=== PATIENT | female | born 1940 | race Caucasian/White ===

== ENCOUNTER 2023-01-22 16:48 | Inpatient (IN) | payer OTHER ==
[~2023-01-22] VITALS: Ht 167.6 cm; Wt 87.5 kg
[2023-01-22 16:58] VITALS: BP_SYST 112
[2023-01-22 17:21] LABS: BASOPHILS % (AUTO) 0.2 % (0.0-2.0); EOSINOPHILS # (AUTO) 0.1 K/uL (0.0-0.4); HEMATOCRIT 40.9 % (36-48); HEMOGLOBIN 13.3 g/dL (12.0-16.0); LYMPHOCYTES # (AUTO) 1.6 K/uL (1.0-5.5); LYMPHOCYTES % (AUTO) 21.1 % (20.5-51.5); MEAN CORPUSCULAR HEMOGLOBIN 29 pg (27-31); MEAN CORPUSCULAR HGB CONC 33 % (32-36); MEAN CORPUSCULAR VOLUME 90 fL (79.0-98.0); MONOCYTES # (AUTO) 0.8 K/uL (0.0-1.0); MONOCYTES % (AUTO) 10.9 % (1.7-9.3); NEUTROPHILS % (AUTO) 66.8 % (40.0-70.0); PLATELET COUNT (AUTO) 216 K/uL (130-430); RED BLOOD CELL COUNT(AUTO) 4.53 MIL/uL (4.2-6.2); RED CELL DISTRIBUTION WIDTH 16.6 % (9.0-15.0); WHITE BLOOD COUNT (AUTO) 7.5 K/uL (4.8-10.8)
[2023-01-22 17:42] LABS: INR 1.2 (0.8-1.2); PROTHROMBIN TIME 12.3 SECS (9.5-12.5)
[2023-01-22 18:00] LABS: ANION GAP 7 (5-15); CALCIUM 9.1 mg/dL (8.4-11.0); CHLORIDE 106 mmol/L (98-107); CREATININE 0.73 mg/dL (0.55-1.30); GLUCOSE 105 mg/dL (70-99); UREA NITROGEN, BLOOD 6 mg/dL (8-21)
[2023-01-22 18:14] LABS: ALANINE AMINOTRANSFERASE 12 U/L (12-78); ASPARTATE AMINOTRANSFERASE 18 U/L (10-37); TOTAL BILIRUBIN 0.7 mg/dL (0.0-1.0)
[2023-01-22 18:15] LABS: ALBUMIN 2.1 g/dL (3.4-4.8)
[2023-01-22] MEDS ORDERED: PANTOPRAZOLE SODIUM 40 MG/VIAL (PROTONIX) IVP SCH (21:00)
[2023-01-22] MEDS ORDERED: POTASSIUM CHLORIDE 40 MEQ in 0.45% NS 250 ML IV ONE (22:00)
[2023-01-22] MEDS ORDERED: LevALBUTEROL HCL 1.25 MG/0.5 ML *CONC.* VIAL.NEB (XOPENEX CONC.) INH PRN (22:00)
[2023-01-22] MEDS ORDERED: ACETAMINOPHEN 325 MG TABLET PO PRN (22:15)
[2023-01-22 22:42] VITALS: BP_SYST 155
[2023-01-22] MEDS: LevALBUTEROL HCL 1.25 MG/0.5 ML *CONC.* VIAL.NEB (XOPENEX CONC.) INH SCH (23:01)
[2023-01-22 23:51] VITALS: BP_SYST 106
[2023-01-23] VITALS (8 sets, daily range): BP systolic 105–155
[2023-01-23] MEDS: KCL 20 mEq in 100 mL (PREMIX) 100 ML IV SCH ×2 (00:54→04:44)
[2023-01-23] MEDS: LevALBUTEROL HCL 1.25 MG/0.5 ML *CONC.* VIAL.NEB (XOPENEX CONC.) INH SCH ×3 (07:50→23:00)
[2023-01-23 16:11] LABS: BASOPHILS # (AUTO) 0.1 K/uL (0.0-0.2); BASOPHILS % (AUTO) 1.2 % (0.0-2.0); EOSINOPHILS # (AUTO) 0.1 K/uL (0.0-0.4); EOSINOPHILS % (AUTO) 1.5 % (0.0-4.0); HEMATOCRIT 38.1 % (36-48); HEMOGLOBIN 12.4 g/dL (12.0-16.0); LYMPHOCYTES # (AUTO) 1.9 K/uL (1.0-5.5); LYMPHOCYTES % (AUTO) 27.6 % (20.5-51.5); MEAN CORPUSCULAR HEMOGLOBIN 29 pg (27-31); MEAN CORPUSCULAR HGB CONC 33 % (32-36); MEAN CORPUSCULAR VOLUME 90 fL (79.0-98.0); MONOCYTES # (AUTO) 0.8 K/uL (0.0-1.0); MONOCYTES % (AUTO) 11.2 % (1.7-9.3); NEUTROPHILS # (AUTO) 4.1 K/uL (1.8-7.7); NEUTROPHILS % (AUTO) 58.5 % (40.0-70.0); PLATELET COUNT (AUTO) 211 K/uL (130-430); RED BLOOD CELL COUNT(AUTO) 4.24 MIL/uL (4.2-6.2); RED CELL DISTRIBUTION WIDTH 16.8 % (9.0-15.0)
[2023-01-23 16:26] LABS: ANION GAP 5 (5-15); CALCIUM 8.9 mg/dL (8.4-11.0); CHLORIDE 105 mmol/L (98-107); CREATININE 0.71 mg/dL (0.55-1.30); GLUCOSE 103 mg/dL (70-99); UREA NITROGEN, BLOOD 8 mg/dL (8-21)
[2023-01-23] MEDS ORDERED: POTASSIUM CHLORIDE 20 MEQ TAB.PRT.SR PO ONE ×2 (16:45→20:45)
[2023-01-23] MEDS ORDERED: POTASSIUM CHLORIDE 40 MEQ in NS 250 ML IV ONE (17:00)
[2023-01-23] MEDS ORDERED: POTASSIUM CHLORIDE 40 MEQ, LIDOCAINE JECT 2% PF 100 MG 50 MG in NS 250 ML IV ONE (20:00)
[2023-01-23] MEDS: ENOXAPARIN SODIUM 40 MG/0.4 ML SYRINGE SUBCUT SCH (21:38)
[2023-01-23] MEDS ORDERED: POTASSIUM CHLORIDE 20 MEQ/PKT PACKET PO ONE (21:45)
[2023-01-24] VITALS: BP_SYST 100
[2023-01-24] MEDS: LevALBUTEROL HCL 1.25 MG/0.5 ML *CONC.* VIAL.NEB (XOPENEX CONC.) INH SCH ×2 (07:00→22:36)
[2023-01-24 08:00] VITALS: BP_SYST 127
[2023-01-24 10:27] LABS: ANION GAP 4 (5-15); CALCIUM 8.6 mg/dL (8.4-11.0); CHLORIDE 106 mmol/L (98-107); CREATININE 0.59 mg/dL (0.55-1.30); GLUCOSE 98 mg/dL (70-99); UREA NITROGEN, BLOOD 5 mg/dL (8-21)
[2023-01-24] MEDS ORDERED: POTASSIUM CHLORIDE 40 MEQ in NS 250 ML IV ONE (11:00)
[2023-01-24] MEDS ORDERED: POTASSIUM CHLORIDE 20 MEQ/PKT PACKET PO ONE ×3 (11:00→18:15)
[2023-01-24 11:53] VITALS: BP_SYST 155
[2023-01-24 17:36] VITALS: BP_SYST 145
[2023-01-24 20:00] VITALS: BP_SYST 116
[2023-01-24] MEDS: ENOXAPARIN SODIUM 40 MG/0.4 ML SYRINGE SUBCUT SCH (20:48)
[2023-01-25] VITALS: BP_SYST 139
[2023-01-25] MEDS: LevALBUTEROL HCL 1.25 MG/0.5 ML *CONC.* VIAL.NEB (XOPENEX CONC.) INH SCH ×3 (07:10→23:18)
[2023-01-25 08:00] VITALS: BP_SYST 121
[2023-01-25 08:04] LABS: BASOPHILS # (AUTO) 0.1 K/uL (0.0-0.2); BASOPHILS % (AUTO) 2.1 % (0.0-2.0); EOSINOPHILS # (AUTO) 0.1 K/uL (0.0-0.4); EOSINOPHILS % (AUTO) 2.6 % (0.0-4.0); HEMATOCRIT 36.4 % (36-48); HEMOGLOBIN 11.9 g/dL (12.0-16.0); LYMPHOCYTES # (AUTO) 1.6 K/uL (1.0-5.5); LYMPHOCYTES % (AUTO) 29.9 % (20.5-51.5); MEAN CORPUSCULAR HEMOGLOBIN 30 pg (27-31); MEAN CORPUSCULAR HGB CONC 33 % (32-36); MEAN CORPUSCULAR VOLUME 90 fL (79.0-98.0); MONOCYTES # (AUTO) 0.6 K/uL (0.0-1.0); MONOCYTES % (AUTO) 11.3 % (1.7-9.3); NEUTROPHILS # (AUTO) 2.8 K/uL (1.8-7.7); NEUTROPHILS % (AUTO) 54.1 % (40.0-70.0); PLATELET COUNT (AUTO) 198 K/uL (130-430); RED BLOOD CELL COUNT(AUTO) 4.03 MIL/uL (4.2-6.2); RED CELL DISTRIBUTION WIDTH 17.1 % (9.0-15.0); WHITE BLOOD COUNT (AUTO) 5.3 K/uL (4.8-10.8)
[2023-01-25 08:06] LABS: ANION GAP 3 (5-15); CALCIUM 8.7 mg/dL (8.4-11.0); CHLORIDE 108 mmol/L (98-107); CREATININE 0.54 mg/dL (0.55-1.30); GLUCOSE 86 mg/dL (70-99); UREA NITROGEN, BLOOD 6 mg/dL (8-21)
[2023-01-25 12:00] VITALS: BP_SYST 122
[2023-01-25 16:00] VITALS: BP_SYST 126
[2023-01-25] MEDS: ENOXAPARIN SODIUM 40 MG/0.4 ML SYRINGE SUBCUT SCH (21:39)
[2023-01-25 22:59] VITALS: BP_SYST 130
[2023-01-25 23:00] VITALS: BP_SYST 130
[2023-01-26 01:56] VITALS: BP_SYST 141
[2023-01-26] MEDS: LevALBUTEROL HCL 1.25 MG/0.5 ML *CONC.* VIAL.NEB (XOPENEX CONC.) INH SCH ×3 (07:20→23:27)
[2023-01-26 08:37] VITALS: BP_SYST 100
[2023-01-26 10:31] VITALS: BP_SYST 100
[2023-01-26 12:00] VITALS: BP_SYST 144
[2023-01-26 16:00] VITALS: BP_SYST 140
[2023-01-26 20:00] VITALS: BP_SYST 143
[2023-01-26] MEDS: ENOXAPARIN SODIUM 40 MG/0.4 ML SYRINGE SUBCUT SCH (23:13)
[2023-01-27 02:30] VITALS: BP_SYST 123
[2023-01-27] MEDS: LevALBUTEROL HCL 1.25 MG/0.5 ML *CONC.* VIAL.NEB (XOPENEX CONC.) INH SCH ×3 (07:00→23:00)
[2023-01-27 07:39] VITALS: BP_SYST 136
[2023-01-27 11:30] VITALS: BP_SYST 130
[2023-01-27 15:05] VITALS: BP_SYST 130
[2023-01-27] MEDS: MEGESTROL ACETATE 400 MG/10 ML UDC PO SCH (21:10)
[2023-01-27] MEDS: ENOXAPARIN SODIUM 40 MG/0.4 ML SYRINGE SUBCUT SCH (21:10)
[2023-01-28 00:17] VITALS: BP_SYST 120
[2023-01-28 04:00] VITALS: BP_SYST 118
[2023-01-28 08:08] LABS: ALANINE AMINOTRANSFERASE 11 U/L (12-78); ALBUMIN 1.8 g/dL (3.4-4.8); ANION GAP 6 (5-15); ASPARTATE AMINOTRANSFERASE 15 U/L (10-37); CALCIUM 8.6 mg/dL (8.4-11.0); CHLORIDE 107 mmol/L (98-107); CREATININE 0.59 mg/dL (0.55-1.30); GLUCOSE 80 mg/dL (70-99); TOTAL BILIRUBIN 0.6 mg/dL (0.0-1.0); UREA NITROGEN, BLOOD 5 mg/dL (8-21)
[2023-01-28 08:28] VITALS: BP_SYST 124
[2023-01-28] MEDS: MEGESTROL ACETATE 400 MG/10 ML UDC PO SCH ×2 (08:45→08:46)
[2023-01-28 08:56] LABS: BASOPHILS # (AUTO) 0.1 K/uL (0.0-0.2); BASOPHILS % (AUTO) 1.9 % (0.0-2.0); EOSINOPHILS # (AUTO) 0.2 K/uL (0.0-0.4); EOSINOPHILS % (AUTO) 2.8 % (0.0-4.0); HEMATOCRIT 34.8 % (36-48); HEMOGLOBIN 11.5 g/dL (12.0-16.0); LYMPHOCYTES # (AUTO) 1.4 K/uL (1.0-5.5); LYMPHOCYTES % (AUTO) 23.7 % (20.5-51.5); MEAN CORPUSCULAR HEMOGLOBIN 30 pg (27-31); MEAN CORPUSCULAR HGB CONC 33 % (32-36); MEAN CORPUSCULAR VOLUME 89 fL (79.0-98.0); MONOCYTES # (AUTO) 0.6 K/uL (0.0-1.0); MONOCYTES % (AUTO) 10.3 % (1.7-9.3); NEUTROPHILS # (AUTO) 3.6 K/uL (1.8-7.7); NEUTROPHILS % (AUTO) 61.3 % (40.0-70.0); PLATELET COUNT (AUTO) 208 K/uL (130-430); RED BLOOD CELL COUNT(AUTO) 3.89 MIL/uL (4.2-6.2); WHITE BLOOD COUNT (AUTO) 5.8 K/uL (4.8-10.8)
[2023-01-28] MEDS ORDERED: POTASSIUM CHLORIDE 20 MEQ TAB.PRT.SR PO ONE (10:15)
[2023-01-28] MEDS ORDERED: POTASSIUM CHLORIDE 40 MEQ in D5W 250 ML IV ONE (10:15)
[2023-01-28 11:40] VITALS: BP_SYST 134
[2023-01-28] MEDS ORDERED: POTASSIUM CHLORIDE 40 MEQ, LIDOCAINE JECT 2% PF 100 MG 50 MG in NS 250 ML IV ONE ×2 (13:00→20:00)
[2023-01-28] MEDS: LevALBUTEROL HCL 1.25 MG/0.5 ML *CONC.* VIAL.NEB (XOPENEX CONC.) INH SCH ×2 (15:00→20:00)
[2023-01-28 16:15] VITALS: BP_SYST 144
[2023-01-28] MEDS: POTASSIUM CHLORIDE 20 MEQ/PKT PACKET PO SCH (21:00)
[2023-01-28] MEDS: ENOXAPARIN SODIUM 40 MG/0.4 ML SYRINGE SUBCUT SCH (21:00)
[2023-01-28 23:30] VITALS: BP_SYST 134
[2023-01-29 00:29] VITALS: BP_SYST 138
[2023-01-29 08:00] VITALS: BP_SYST 136
[2023-01-29] MEDS: POTASSIUM CHLORIDE 20 MEQ/PKT PACKET PO SCH (08:42)
[2023-01-29] MEDS ORDERED: POTASSIUM CHLORIDE 20 MEQ/PKT PACKET PO ONE (09:30)
[2023-01-29 12:00] VITALS: BP_SYST 137
[2023-01-29] MEDS: LevALBUTEROL HCL 1.25 MG/0.5 ML *CONC.* VIAL.NEB (XOPENEX CONC.) INH SCH (15:29)
[2023-01-29 15:35] VITALS: BP_SYST 137
[2023-01-29 16:00] VITALS: BP_SYST 131
[2023-01-29 16:21] VITALS: BP_SYST 139
== END 2023-01-29 17:30 | DRG 193 ==
LOC: SED 16:48 → SMU 21:11
PROVIDERS: ADMIT Family Medicine; ATTEND Family Medicine
DX: J18.9 Pneumonia, unspecified organism (principal); E43 Unspecified severe protein-calorie malnutrition; M81.0 Age-related osteoporosis without current pathological fracture; Z96.642 Presence of left artificial hip joint; Z20.822 Contact with and (suspected) exposure to COVID-19; E87.6 Hypokalemia; Z60.2 Problems related to living alone; Z68.31 Body mass index [BMI] 31.0-31.9, adult; Z88.0 Allergy status to penicillin
CPT/HCPCS: 36415; 71045; 80048; 80053; 82550; 83605; 83735; 83880; 84132; 84484; 85025; 85610-TC; 85730-TC; 93005; 94640; 94760; 97110-GP; 97112-GP; 97163-GP; 97530-GP; 99285; J1650; J1956; J3480; J7050; J7060; J7612

== ENCOUNTER 2023-02-21 02:38 | Inpatient (IN) | payer OTHER ==
[~2023-02-21] VITALS: Ht 167.6 cm; Wt 78.0 kg
[2023-02-21] MEDS: POTASSIUM CHLORIDE 40 MEQ in 0.45% NS 250 ML IV SCH ×2 (00:30→17:00)
[2023-02-21] MEDS ORDERED: ONDANSETRON HCL 4 MG/2 ML VIAL IVP ONE (02:45)
[2023-02-21 02:50] VITALS: BP_SYST 142
--- NOTE | 2023-02-21 02:59 | NUR ---
Patient triaged and placed in RM 4. VSS and patient appears in no acute distress at this time. Accompanied by ems and MD notified of need for MSE.
--- NOTE | 2023-02-21 03:00 | NUR ---
Pt straight cath for urine tolerated well
[2023-02-21] MEDS ORDERED: MORPHINE 2 MG/ML INJ. SYRINGE IVP ONE (03:15)
--- NOTE | 2023-02-21 03:19 | NUR ---
Brought pt to CT with technical producer.
--- NOTE | 2023-02-21 03:30 | NUR ---
16 Fr ngt placed in left nare with brown coffee brown emesis return of approx 100cc
[2023-02-21 04:02] LABS: BASOPHILS % (AUTO) 0.3 % (0.0-2.0); EOSINOPHILS % (AUTO) 0.1 % (0.0-4.0); HEMATOCRIT 45.9 % (36-48); HEMOGLOBIN 14.9 g/dL (12.0-16.0); LYMPHOCYTES % (AUTO) 7.8 % (20.5-51.5); MEAN CORPUSCULAR HEMOGLOBIN 30 pg (27-31); MEAN CORPUSCULAR HGB CONC 33 % (32-36); MEAN CORPUSCULAR VOLUME 92 fL (79.0-98.0); MONOCYTES # (AUTO) 0.7 K/uL (0.0-1.0); MONOCYTES % (AUTO) 5.6 % (1.7-9.3); NEUTROPHILS % (AUTO) 86.2 % (40.0-70.0); PLATELET COUNT (AUTO) 284 K/uL (130-430); RED BLOOD CELL COUNT(AUTO) 5.01 MIL/uL (4.2-6.2); RED CELL DISTRIBUTION WIDTH 18.2 % (9.0-15.0); WHITE BLOOD COUNT (AUTO) 12.7 K/uL (4.8-10.8)
[2023-02-21 04:05] LABS: ANION GAP 15 (5-15); CALCIUM 9.9 mg/dL (8.4-11.0); CHLORIDE 99 mmol/L (98-107); CREATININE 1.05 mg/dL (0.55-1.30); GLUCOSE 96 mg/dL (70-99); UREA NITROGEN, BLOOD 17 mg/dL (8-21)
[2023-02-21 04:06] LABS: INR 1.1 (0.8-1.2); PROTHROMBIN TIME 11.2 SECS (9.5-12.5)
[2023-02-21 04:16] LABS: ALANINE AMINOTRANSFERASE 11 U/L (12-78); ALBUMIN 2.5 g/dL (3.4-4.8); ASPARTATE AMINOTRANSFERASE 20 U/L (10-37); LIPASE 1591 U/L (73-393); TOTAL BILIRUBIN 1.2 mg/dL (0.0-1.0)
[2023-02-21] MEDS ORDERED: KCL 40 mEq in 100 mL (PREMIX) 100 ML IV ONE ×2 (04:30→06:15)
[2023-02-21] MEDS ORDERED: KCL 20 mEq in NS 1000 mL 1,000 ML IV ONE (05:00)
[2023-02-21] MEDS ORDERED: PIPERACILLIN/TAZOBACTAM 3.375 GM/VIAL (ZOSYN) IV ONE (05:08)
[2023-02-21] MEDS ORDERED: PIPERACILLIN/TAZO 3.375 GM in NS 50 ML IV ONE (05:15)
[2023-02-21 05:57] LABS: BILIRUBIN,URINE 2+ (NEGATIVE); GLUCOSE,URINE NEGATIVE (NEGATIVE); KETONES,URINE 1+ (NEGATIVE); NITRITE, URINE NEGATIVE (NEGATIVE); PROTEIN URINE 1+ (NEGATIVE)
[2023-02-21 06:08] LABS: BLOOD, URINE TRACE (NEGATIVE); CLARITY/URINE CLOUDY (CLEAR); COLOR,URINE YELLOW (YELLOW)
[2023-02-21 06:09] LABS: LEUKOCYTE ESTERASE ,URINE 1+ (NEGATIVE)
[2023-02-21 06:10] LABS: BACTERIA,URINE MANY /HPF (None Seen); WBC,URINE >100 /HPF (0-3)
[2023-02-21] MEDS ORDERED: PANTOPRAZOLE SODIUM 40 MG/VIAL (PROTONIX) IVP ONE (06:15)
[2023-02-21] MEDS ORDERED: LR 1,000 ML IV ONE (06:15)
--- NOTE | 2023-02-21 07:15 | NUR ---
PT RECEIVED, CARE ASSUMED. PT LAYING IN BED ANXIOUS. INTRODUCED MYSELF. NOTED: 02 @ 91% PLACED PT ON 3LPM VIA NC. NOTED VITAL SIGNS. PREVIOUS NURSE HUNG POTASSIUM 20MEQ/ML BAG BUT DID NOT CHART IT. I CHARTED IT DUE TO MEDS RUNNING. WILL CONTINUE TO MONITOR
[2023-02-21] MEDS: POTASSIUM CHLORIDE 20 mEq in 100 mL (PREMIX) 100 ML x 2 doses IV SCH ×2 (07:40→08:57)
[2023-02-21 10:02] LABS: ANION GAP 18 (5-15); CALCIUM 10.2 mg/dL (8.4-11.0); CHLORIDE 99 mmol/L (98-107); CREATININE 0.99 mg/dL (0.55-1.30); GLUCOSE 102 mg/dL (70-99); UREA NITROGEN, BLOOD 18 mg/dL (8-21)
[2023-02-21] MEDS ORDERED: GASTROGRAFIN 120 ML ONE (10:23)
--- NOTE | 2023-02-21 11:35 | NUR ---
CONSULTATION PAGED REASON FOR CONSULTATION:ACUTE PANCREATITIS WAS CONSULT CALLED?Y PERSON WHO WAS NOTIFIED:PRAVIN CONSULTING PHYSICIAN:CAT HERMOSILLO NURSE AIDE EVALUATOR SPECIALTY:GI NURSE AIDE EVALUATOR PHONE NUMBER:[phone] REQUESTING PHYSICIAN:LUZMA HALL
[2023-02-21 11:45] VITALS: BP_SYST 118
--- NOTE | 2023-02-21 11:55 | NUR ---
PT TRANSFERRED TO ROOM 132C, BEDSIDE REPORT GIVEN.
--- NOTE | 2023-02-21 12:35 | NUR ---
NOTES; PT REFUSED PROCEDURE AT THIS TIME. PT WANTS TO DO IT TMR. PT IS A/OX4, EXP RISK AND BENEFITS OF NOT DOING IT DONE TMR, PT STILL REFUSED.
[2023-02-21] MEDS ORDERED: POTASSIUM CHLORIDE 20 MEQ/PKT PACKET NG ONE (14:30)
[2023-02-21] MEDS: D5LR 1,000 ML IV SCH ×2 (15:00→22:00)
[2023-02-21 16:00] VITALS: BP_SYST 120
[2023-02-21] MEDS: PIPERACILLIN/TAZO 3.375/DEX-IS 50 ML IV SCH ×2 (17:26→23:20)
--- NOTE | 2023-02-21 18:38 | NUR ---
PT AWAKE,ALERT,VSS,ON O2 2L/NC,SAT 95%,PULLED OUT NGT AND REFUSED TO GET REINSERTED,NO C/O PAIN OR DISCOMFORT,IVF CONTINUE INFUSING IV SITE IN LEFT AC PATENT AND INTACT,KEEP PT NPO.NEEDS ATTENDED, CALL LIGHT & PERSONAL ITEMS WITHIN PT REACH,SAFETY MAINTAINED CONTINUE TO MONITOR PT.
[2023-02-21] MEDS ORDERED: LORazepam 2 MG/ML VIAL IVP ONE (20:30)
[2023-02-21] MEDS ORDERED: QUEtiapine FUMARATE 25 MG TABLET PO ONE (20:30)
[2023-02-22] VITALS: BP_SYST 125
--- NOTE | 2023-02-22 01:07 | NUR ---
PT VITALS ARE STABLE. ALERT ORIENTED X1. PULLING IV, AND AGITATED. MD WAS PAGED. SEROQUEL 25 MG PO ONCE AND ATIVAN 1MG IVP ONCE ORDERED AND ADMINISTERED. PT LIES COMFORTABLE IN HER BED. COMFORT MEASURES ARE PROVIDED. CALL LIGHT IS WITHIN REACH
[2023-02-22] MEDS: D5LR 1,000 ML IV SCH ×2 (05:09→16:02)
[2023-02-22] MEDS: PIPERACILLIN/TAZO 3.375/DEX-IS 50 ML IV SCH ×4 (05:09→23:33)
[2023-02-22 06:14] VITALS: BP_SYST 129
[2023-02-22 07:11] LABS: BASOPHILS % (AUTO) 0.1 % (0.0-2.0); EOSINOPHILS % (AUTO) 0.1 % (0.0-4.0); HEMATOCRIT 38.3 % (36-48); HEMOGLOBIN 12.5 g/dL (12.0-16.0); LYMPHOCYTES # (AUTO) 1.1 K/uL (1.0-5.5); MEAN CORPUSCULAR HEMOGLOBIN 30 pg (27-31); MEAN CORPUSCULAR HGB CONC 33 % (32-36); MEAN CORPUSCULAR VOLUME 91 fL (79.0-98.0); MONOCYTES # (AUTO) 1.4 K/uL (0.0-1.0); MONOCYTES % (AUTO) 8.8 % (1.7-9.3); NEUTROPHILS # (AUTO) 13.3 K/uL (1.8-7.7); PLATELET COUNT (AUTO) 193 K/uL (130-430); RED BLOOD CELL COUNT(AUTO) 4.19 MIL/uL (4.2-6.2); RED CELL DISTRIBUTION WIDTH 18.4 % (9.0-15.0); WHITE BLOOD COUNT (AUTO) 15.8 K/uL (4.8-10.8)
--- NOTE | 2023-02-22 07:25 | NUR ---
Initial notes Received patient sleeping in bed, A/Ox2 forgetful no signs pain/SOB/, respiration even and unlabored, no signs of distress. IV left AC#20g patent, no signs of infiltration. Incontinent, clean and pat dry, reposition patent in bed. Continue to maintain safety precaution, bed in low position, call light w/in reached.
[2023-02-22 07:26] LABS: ALANINE AMINOTRANSFERASE 7 U/L (12-78); ALBUMIN 2.1 g/dL (3.4-4.8); ANION GAP 5 (5-15); ASPARTATE AMINOTRANSFERASE 14 U/L (10-37); CALCIUM 9.2 mg/dL (8.4-11.0); CHLORIDE 106 mmol/L (98-107); CHOLESTEROL 182 mg/dL (<200); GLUCOSE 124 mg/dL (70-99); HDL CHOLESTEROL 36 mg/dL (>55); LIPASE 689 U/L (73-393); TOTAL BILIRUBIN 0.7 mg/dL (0.0-1.0); TRIGLYCERIDES 125 mg/dL (30-150); UREA NITROGEN, BLOOD 21 mg/dL (8-21)
[2023-02-22 07:57] VITALS: BP_SYST 117
[2023-02-22] MEDS ORDERED: KCL 40 mEq in 100 mL (PREMIX) 100 ML IV ONE (09:15)
--- NOTE | 2023-02-22 10:00 | NUR ---
Patient awake in bed, reposition, no signs of distress, safety precaution secured.
[2023-02-22] MEDS ORDERED: POTASSIUM CHLORIDE 40 MEQ in NS 250 ML IV ONE (11:00)
[2023-02-22 11:59] VITALS: BP_SYST 118
[2023-02-22] MEDS ORDERED: POTASSIUM CHLORIDE 20 MEQ/PKT PACKET PO SCH ×2 (12:00→18:00)
[2023-02-22] MEDS ORDERED: QUEtiapine FUMARATE 25 MG TABLET PO ONE (12:15)
--- NOTE | 2023-02-22 12:47 | NUR ---
Dietitian Recommendations * Advance to GI soft diet, when medically appropriate GS, MPH, RD Please refer to RD Assessment for further details. Thanks! Addendum: 02/22/23 at [address] Amended: Links added.
[2023-02-22 16:40] VITALS: BP_SYST 122
--- NOTE | 2023-02-22 19:03 | NUR ---
Closing A/Ox2 forgetful no signs pain/SOB/, respiration even and unlabored, no signs of distress. IV left AC#20g patent, maintain safety precaution during my shift, will endorse.
[2023-02-22 21:46] VITALS: BP_SYST 128
[2023-02-22] MEDS: QUEtiapine FUMARATE 25 MG TABLET PO SCH (22:17)
--- NOTE | 2023-02-22 22:54 | NUR ---
PT VITALS STABLE, ALERT ORIENTED X2, NO COMPLAIN OF PAIN . NO SIGNS OF DISTRESS , SHORTNESS OF BREATH OR CHEST PAIN. SCHEDULED MEDICATIONS ADMINISTERED, SAFETY MEASURES PROVIDED, COMFORT MEASURES PROVIDED. BED IS LOW POSITION. .
--- NOTE | 2023-02-22 23:00 | NUR ---
RECEIVED PT IN BED. PT AWAKE AND ALERT. INCONTINENT OF URINE AND BM. GIVEN BATH. D5LR 100 ML/HR.
[2023-02-23 00:07] VITALS: BP_SYST 101
[2023-02-23] MEDS: PIPERACILLIN/TAZO 3.375/DEX-IS 50 ML IV SCH (05:22)
--- NOTE | 2023-02-23 06:46 | NUR ---
PT HAD TOTAL 2 TIMES BM.LEFT KNEE WITH DRESSING. ABDOMEN STILL DISTENDED BUT SOFT. DENIED NAUSEA/VOMITING.
[2023-02-23 07:37] LABS: BASOPHILS % (AUTO) 0.2 % (0.0-2.0); EOSINOPHILS # (AUTO) 0.1 K/uL (0.0-0.4); EOSINOPHILS % (AUTO) 0.4 % (0.0-4.0); HEMATOCRIT 35.4 % (36-48); HEMOGLOBIN 11.8 g/dL (12.0-16.0); LYMPHOCYTES # (AUTO) 1.1 K/uL (1.0-5.5); MEAN CORPUSCULAR HEMOGLOBIN 30 pg (27-31); MEAN CORPUSCULAR HGB CONC 33 % (32-36); MEAN CORPUSCULAR VOLUME 91 fL (79.0-98.0); MONOCYTES # (AUTO) 1.1 K/uL (0.0-1.0); MONOCYTES % (AUTO) 8.4 % (1.7-9.3); NEUTROPHILS # (AUTO) 10.4 K/uL (1.8-7.7); PLATELET COUNT (AUTO) 164 K/uL (130-430); RED BLOOD CELL COUNT(AUTO) 3.89 MIL/uL (4.2-6.2); WHITE BLOOD COUNT (AUTO) 12.7 K/uL (4.8-10.8)
[2023-02-23 07:53] LABS: ALANINE AMINOTRANSFERASE 6 U/L (12-78); ALBUMIN 1.6 g/dL (3.4-4.8); ANION GAP 4 (5-15); ASPARTATE AMINOTRANSFERASE 10 U/L (10-37); CALCIUM 9.1 mg/dL (8.4-11.0); CHLORIDE 106 mmol/L (98-107); CREATININE 0.88 mg/dL (0.55-1.30); GLUCOSE 79 mg/dL (70-99); LIPASE 231 U/L (73-393); TOTAL BILIRUBIN 0.7 mg/dL (0.0-1.0); UREA NITROGEN, BLOOD 18 mg/dL (8-21)
--- NOTE | 2023-02-23 08:00 | NUR ---
Initial notes Received patient sleeping in bed, A/Ox2 forgetful no signs pain/SOB/, respiration even and unlabored, no signs of distress. IV left AC#20g patent, no signs of infiltration. Reposition patent in bed by 2 staff, continue to maintain safety precaution, bed in low position, call light w/in reached.
[2023-02-23 08:19] VITALS: BP_SYST 110
[2023-02-23] MEDS: QUEtiapine FUMARATE 25 MG TABLET PO SCH ×2 (08:38→21:24)
[2023-02-23] MEDS ORDERED: MINERAL OIL 30 ML UDC PO ONE (09:30)
[2023-02-23] MEDS: D5LR 1,000 ML IV SCH ×2 (11:50→21:32)
[2023-02-23 12:00] VITALS: BP_SYST 94
--- NOTE | 2023-02-23 12:00 | NUR ---
Reposition in bed, no c/o pain/SOB, respiration even, no distress
--- NOTE | 2023-02-23 12:30 | NUR ---
Dr. Martin aware patent urine culture results :Klebsiella ESBL MDRO in urine
[2023-02-23] MEDS ORDERED: POTASSIUM CHLORIDE 20 MEQ/PKT PACKET PO ONE (13:45)
[2023-02-23 16:00] VITALS: BP_SYST 98
[2023-02-23] MEDS: MEROPENEM 1 GM IVPB PREMIX 50 ML IV SCH (17:07)
[2023-02-23 19:00] VITALS: BP_SYST 101
--- NOTE | 2023-02-23 19:00 | NUR ---
Closing A/Ox2 forgetful no signs pain/SOB/, respiration even and unlabored, no signs of distress. IV left AC#20g patent, maintain safety precaution during my shift, will endorse.
--- NOTE | 2023-02-23 19:15 | NUR ---
change of shift.pt.presents isolation status;contact;+u/cx.pt.presents iv access location lt.forearm iv fluids infusing. pt.presents activity status bedrest.general status stable.respiratory status stable;un-labored@room air.call light/telephone w/in access of the pt.
[2023-02-23 20:00] VITALS: BP_SYST 101; BP_SYST 124
--- NOTE | 2023-02-23 20:00 | NUR ---
pt.assessed.v/s assessed values wnl.no c/o pain,nausea..iv access intact;patent.pt.assessed for cleanliness.pt.repositioned.pt.apprised snacks/beverages are available w/in the shift.no requests posited@this hour.call light/telephone placed w/in access of the pt.
--- NOTE | 2023-02-23 21:00 | NUR ---
2100p medications administered.pt.capable to ingest the po medications w/out difficulty.no c/o pain,nausea.call light/ telephone w/in access of the pt.
[2023-02-23] MEDS: POTASSIUM CHLORIDE 20 MEQ/PKT PACKET PO SCH (21:24)
--- NOTE | 2023-02-23 22:00 | NUR ---
pt.assessed.pt.quiescent.per flacc pain mgx pt.absent facial grimaces/body posturing. pt.assessed for cleanliness. pt.repositioned.iv access intact;patent.call light/telephone placed w/in access of the pt.
[2023-02-24] VITALS: BP_SYST 103
--- NOTE | 2023-02-24 | NUR ---
pt.assessed.v/s assessed values wnl.no c/o pain,nausea.no requests posited@this hour.iv access intact;patent. pt.assessed for cleanliness.pt.repositioned.call light/telephone placed w/in access of the pt.
--- NOTE | 2023-02-24 02:00 | NUR ---
pt.assessed.pt.quiescent.per flacc pain mgx pt.absent facial grimaces/body posturing.pt.assessed for cleanliness.pt.repositioned. iv access/valera cath intact;patent.call light/telephone placed w/in access of the pt.
--- NOTE | 2023-02-24 04:00 | NUR ---
pt.assessed.no c/o pain.nausea.no requests posited@this hour.agriculture laborer present drawing blood samples morning lab. pt.assessed for cleanliness.pt.repositioned.call light/telephone placed w/in access of the pt.
[2023-02-24 05:40] LABS: BASOPHILS % (AUTO) 0.2 % (0.0-2.0); EOSINOPHILS # (AUTO) 0.1 K/uL (0.0-0.4); HEMATOCRIT 38.4 % (36-48); HEMOGLOBIN 12.6 g/dL (12.0-16.0); LYMPHOCYTES # (AUTO) 1.3 K/uL (1.0-5.5); LYMPHOCYTES % (AUTO) 11.6 % (20.5-51.5); MEAN CORPUSCULAR HEMOGLOBIN 30 pg (27-31); MEAN CORPUSCULAR HGB CONC 33 % (32-36); MEAN CORPUSCULAR VOLUME 92 fL (79.0-98.0); MONOCYTES # (AUTO) 0.9 K/uL (0.0-1.0); MONOCYTES % (AUTO) 8.5 % (1.7-9.3); NEUTROPHILS # (AUTO) 8.5 K/uL (1.8-7.7); NEUTROPHILS % (AUTO) 78.7 % (40.0-70.0); PLATELET COUNT (AUTO) 177 K/uL (130-430); RED BLOOD CELL COUNT(AUTO) 4.18 MIL/uL (4.2-6.2); RED CELL DISTRIBUTION WIDTH 18.4 % (9.0-15.0); WHITE BLOOD COUNT (AUTO) 10.8 K/uL (4.8-10.8)
[2023-02-24] MEDS: MEROPENEM 1 GM IVPB PREMIX 50 ML IV SCH ×2 (05:47→17:47)
[2023-02-24 06:05] LABS: ALANINE AMINOTRANSFERASE 5 U/L (12-78); ALBUMIN 1.7 g/dL (3.4-4.8); ANION GAP 4 (5-15); ASPARTATE AMINOTRANSFERASE 13 U/L (10-37); CALCIUM 9.3 mg/dL (8.4-11.0); CHLORIDE 105 mmol/L (98-107); CREATININE 0.65 mg/dL (0.55-1.30); GLUCOSE 74 mg/dL (70-99); LIPASE 222 U/L (73-393); TOTAL BILIRUBIN 0.8 mg/dL (0.0-1.0); UREA NITROGEN, BLOOD 16 mg/dL (8-21)
--- NOTE | 2023-02-24 08:00 | NUR ---
K+ 2.5, ORDERS OBTAINED FROM DR JOHN WADSWORTH 40 X 2
[2023-02-24] MEDS: MINERAL OIL 30 ML UDC PO SCH (09:00)
[2023-02-24] MEDS: QUEtiapine FUMARATE 25 MG TABLET PO SCH (09:40)
[2023-02-24] MEDS: POTASSIUM CHLORIDE 20 MEQ/PKT PACKET PO SCH ×2 (09:40→22:11)
[2023-02-24] MEDS: POTASSIUM CHLORIDE 40 MEQ in NS 250 ML IV SCH ×2 (11:07→14:11)
[2023-02-24 13:15] VITALS: BP_SYST 111
--- NOTE | 2023-02-24 15:03 | NUR ---
P.T. NOTES P.T. EVAL INITIATED; REFER TO EVAL FOR DETAILS.
[2023-02-24 17:05] VITALS: BP_SYST 111
[2023-02-24] MEDS ORDERED: MEGESTROL ACETATE 400 MG/10 ML UDC PO ONE (17:45)
[2023-02-24] MEDS ORDERED: MAGNESIUM OXIDE 400 MG TABLET PO ONE (17:45)
[2023-02-24] MEDS ORDERED: POTASSIUM CHLORIDE 20 MEQ/PKT PACKET PO ONE (18:15)
--- NOTE | 2023-02-24 20:58 | NUR ---
RECEIVED PT LYING IN BED, NO DISTRESS NOTED, DENIES PAIN. AAOX2, O2 SAT 94% ON RA, EDEMA TO LUE AND BLE. ELEVATED ONTO PILLOW, STOPPED IVF. AT THIS TIME PT IS REFUSING NEW IV INSERTION AND TO BE CLEANED UP. PT IS INCONTINENT. PT STATED "I HAVE RIGHTS AND I SAID NO!" WILL TRY AGAIN IN AN HOUR.
[2023-02-24] MEDS: MIRTAZAPINE 15 MG TABLET PO SCH (22:10)
[2023-02-24] MEDS: MAGNESIUM OXIDE 400 MG TABLET PO SCH (22:11)
[2023-02-25 00:23] VITALS: BP_SYST 126
--- NOTE | 2023-02-25 01:55 | NUR ---
CONSULTATION PAGED/CALLED Reason for Consultation: ALOC Person Who was Notified: DR OLEA VIA TEXT Consulting Physician: LEFTY [employer] Site Monitor Specialty: Ordering Physician: JOHN
[2023-02-25 05:49] LABS: BASOPHILS % (AUTO) 0.3 % (0.0-2.0); EOSINOPHILS # (AUTO) 0.1 K/uL (0.0-0.4); EOSINOPHILS % (AUTO) 1.4 % (0.0-4.0); HEMATOCRIT 38.6 % (36-48); HEMOGLOBIN 12.6 g/dL (12.0-16.0); LYMPHOCYTES # (AUTO) 1.4 K/uL (1.0-5.5); LYMPHOCYTES % (AUTO) 12.9 % (20.5-51.5); MEAN CORPUSCULAR HEMOGLOBIN 30 pg (27-31); MEAN CORPUSCULAR HGB CONC 33 % (32-36); MEAN CORPUSCULAR VOLUME 92 fL (79.0-98.0); MONOCYTES % (AUTO) 9.8 % (1.7-9.3); NEUTROPHILS % (AUTO) 75.6 % (40.0-70.0); PLATELET COUNT (AUTO) 200 K/uL (130-430); RED CELL DISTRIBUTION WIDTH 17.9 % (9.0-15.0); WHITE BLOOD COUNT (AUTO) 10.6 K/uL (4.8-10.8)
[2023-02-25 06:17] LABS: ANION GAP 5 (5-15); CALCIUM 9.3 mg/dL (8.4-11.0); CHLORIDE 107 mmol/L (98-107); GLUCOSE 71 mg/dL (70-99); PHOSPHORUS 2.3 mg/dL (2.7-4.5); UREA NITROGEN, BLOOD 15 mg/dL (8-21)
[2023-02-25] MEDS: MEROPENEM 1 GM IVPB PREMIX 50 ML IV SCH ×2 (06:35→16:57)
[2023-02-25] MEDS: D5LR 1,000 ML IV SCH (06:46)
[2023-02-25 08:00] VITALS: BP_SYST 135
--- NOTE | 2023-02-25 08:35 | NUR ---
OPENING NOTES: PT IN BED WITH EYES CLOSED. PT RESPONDED TO NAME. NO S/S OF DISTRESS OR PAIN REPORTED. BREATHING IS EVEN AND UNLABORED ON RA 96%. SAT PT UP AND REPOSITIONED HER TO EAT BREAKFAST. VITAL SIGNS ARE STABLE. EDUCATED PT ON USE OF CALL LIGHT SHOULD SHE NEED ANYTHING. ALL NEEDS MET AT THIS TIME, SAFETY CHECKS MADE AND CALL LIGHT WITHIN REACH. Addendum: 02/25/23 at 0839 by Loni Zhong LVN CONTACT ISOLATION CONTINUED FOR ESBL IN URINE. ADDED MORE GOWNS TO ROOM.
[2023-02-25] MEDS: MINERAL OIL 30 ML UDC PO SCH (09:00)
[2023-02-25] MEDS: MEGESTROL ACETATE 400 MG/10 ML UDC PO SCH (09:00)
[2023-02-25] MEDS: POTASSIUM CHLORIDE 20 MEQ/PKT PACKET PO SCH ×4 (09:29→20:49)
[2023-02-25] MEDS: MAGNESIUM OXIDE 400 MG TABLET PO SCH ×3 (09:30→20:49)
--- NOTE | 2023-02-25 09:30 | NUR ---
PATIENT REFUSING MEDICATIONS. EXPLAINED THE IMPORTANCE OF TAKING HER MEDICATIONS PRESCRIBED BY HER DOCTOR AND SHE STILL REFUSED. I TOLD HER SHE IS GOING AGAINST MEDICAL ADVICE AND PATIENT STATED" I DON'T CARE". PATIENT ALSO REFUSED PHYSICAL THERAPY THIS MORNING. SAFETY CHECKS MADE AND PATIENT EDUCATED ON USE OF CALL LIGHT SHOULD SHE NEED ANYTHING. CALL LIGHT WITHIN REACH.
--- NOTE | 2023-02-25 09:32 | NUR ---
>>>PT NOTES<<< PATIENT REFUSED PHYSICAL THERAPY TODAY. STATES SHE'S TIRED AND DOES NOT WANT TO DO IT. WILL FOLLOW UP TOMORROW, Friday02/26/23.
--- NOTE | 2023-02-25 10:42 | NUR ---
Nutrition F/U RD reviewed pts current EMR including diet hx, physician notes, nursing notes, pertinent labs/meds/procedures, care trends and care activity. Subjective Information Per LOS 02/25, pt will be going to SNF shortly. RD noticed pt is on mechanical soft, but should be on GI soft diet instead; RD ordered. GLOBAL SAFETY OFFICER said pt doesn't have chewing or swallowing issues but likes for big pieces to be chopped. RD rounded to pt room but pt was sleeping. RD s/w GLOBAL SAFETY OFFICER about pt. She reports that pt is eating poorly and often refusing treatment. RD suggested Ensure BID and she was agreeable. GLOBAL SAFETY OFFICER reports LBM 02/23 x 3. Per EMR review: abd distended, firm w/ active bowel sounds. Current Diet Order/Nutrition Support Mechanical soft x 2 days % PO intake Poor avg of 34% x 5 meals Last BM 02/23 x 3 Estimated Energy Expenditure (kcals/day) 9830-7288 kcal (25-30 kcal/kg ABW 64kg d/t GERIAT) Estimated Protein Required (g/day) 51-77g (0.8-1.2 g/kg ABW 64kg d/t GERIAT) Estimated Fluid Required (l/day) Refer to MD (fluid overload) Problem/Etiology/Signs/Symptoms * Complicated GI function R/T ileus AEB N/V (improving) Expected Outcomes/Goals PO intake provides >85% estimated nutrient needs, nutrition-related labs trending WNL, continued skin integrity, BM q1-3 days Dietitian Recommendations * Ordered GI soft, chopped diet * Ordered Ensure HP BID (provides 700 kcal, 40 g PRO) Follow up * High risk: see pt in 2-3 days GS, MPH, RD
--- NOTE | 2023-02-25 10:45 | NUR ---
Dietitian Recommendations * Ordered GI soft, chopped diet * Ordered Ensure HP BID (provides 700 kcal, 40 g PRO) GS, MPH, RD Please refer to Nutrition F/U for further details. Thanks!
[2023-02-25 11:02] VITALS: BP_SYST 137
--- NOTE | 2023-02-25 12:17 | NUR ---
PT SCHEDULED TO TAKE 40 MEQ POTASSIUM ORALLY. BROUGHT HER SEVERAL OPTIONS IN JUICE WITH WHICH TO DRINK THE POTASSIUM BUT SHE RECEIVED. I EXPLAINED TO HER THE IMPORTANCE OF TAKING THE POTASSIUM AND THAT BY REFUSING SHE IS GOING AGAINST MEDICAL ADVICE. SHE YELLED AND SAID "NO I DON'T WANT IT" AND SHE ALSO REFUSED LUNCH.
--- NOTE | 2023-02-25 12:28 | NUR ---
CM: Updated clinicals to [facility] managed/ [employer] management # [phone]. The pt is not ready for dc today, pending Neuro and psych consult, K=3.1. Angelina is off tomorrow, Aditi will take over # [phone].
--- NOTE | 2023-02-25 15:23 | NUR ---
PATIENT REFUSED 300PM MEDICATIONS. ASKED HER TWICE AND SHE SAID NO. EXPLAINED THE BENEFITS OF THE MEDICATION AND SHE SAID i DON'T CARE TO HEAR IT".
--- NOTE | 2023-02-25 15:31 | NUR ---
Social Serve assessment In to see patient this morning. The patient was alert with confusion. She was able to answer some questions that I had, however it is not clear if the information provided was accurate. Per patient, she resides in a single-story home alone. She states she uses a walker and a shower chair. She has a caregiver that comes in "all week". She is no longer driving, and states her neighbor assists her with transportation. Her primary dr. is Dr. Bagley in [place]. The patient was previously at [facility]. I called and spoke with the [facility] certified social workers in health care, Mary. Per Mary, the patient had a friend, Gamaliel Ochoa. She states the patient hired a caregiver through [facility] caregiving agency. Home health was ordered, however the patient declined home health services. I called Gamaliel who provided me the name and number of the patient's half sister, Lay (the same name as the patient) who lives in [place]. Gamaliel also provided me the name of the patient's caregiver, Dorothea Cordero. Per Gamaliel, the patient has a niece, Rylee Anegl, but she is unsure whose child she is and did not have contact information for her. I called and left a message for the half sister, Lay. I also called the caregiving agency and spoke with Aissatou. Per Aissatou, the patient signed on with services with them the Friday before she discharged from [facility]. upon the agency arriving at the home, the caregiver found the patient to be bedridden, living in deplorable conditions, unable to care for herself, and without food. The agency spoke with the patient and got the patient to agree to increase care. Groceries were instacarted to the home. The agency was in the home from 9a - 3p, which is all that the patient would agree to increase. The caregiver went out to the home Friday morning, and found the patient not at home, and thus they were unable to find the patient, as the agency was advised by the friend that the patient went to [facility]. Per Aissatou, the patient has a son whom she is estranged from and has not spoken to in over 8 years. Aissatou does not have the son's name or contact information. friend, Gamaliel Ochoa: [phone] [facility] agency: [phone] caregiver, Dorothea Cordero: [phone] half sister, Lay: [phone]
--- NOTE | 2023-02-25 15:48 | NUR ---
paging dr wong about dvt prophylactic for patient.
[2023-02-25 15:55] VITALS: BP_SYST 144
[2023-02-25] MEDS ORDERED: POTASSIUM CHLORIDE 40 MEQ, LIDOCAINE JECT 2% PF 100 MG 50 MG in NS 250 ML IV ONE ×2 (16:00→20:00)
--- NOTE | 2023-02-25 16:12 | NUR ---
attempted [address] wong for dvt prophylactic. [phone]. called 4 times, phone had busy signal.
--- NOTE | 2023-02-25 18:20 | NUR ---
CLOSING NOTES: PT IN BED WITH EYES CLOSED. RESPONDED TO NAME. REFUSED TO BE CLEANED BUT MANAGED TO CONVINCE HER. CLEANED PATIENT SHE HAD URINATED AND REPOSITIONED WITH CHIEF CLINICAL OFFICER. NO S/S OF DISTRESS OR PAIN REPORTED. BREATHING IS EVEN AND UNLABORED ON RA 95%. PATIENT EDUCATED ON USE OF CALL LIGHT SHOULD SHE NEED ANYTHING. ALL NEEDS MET AT THIS TIME, SAFETY CHECKS MADE AND CALL LIGHT WITHIN REACH. WILL ENDORSE TO TURF AND GROUNDS SUPERVISOR NURSE.
[2023-02-25 20:00] VITALS: BP_SYST 140
[2023-02-25] MEDS: MIRTAZAPINE 15 MG TABLET PO SCH (20:49)
--- NOTE | 2023-02-25 21:15 | NUR ---
RECEIVED PT LYING IN BED, NO DISTRESS NOTED, DENIES PAIN. AAOX1, O2 SAT 93% ON RA. DIMINISHED LUNG SOUNDS. IV SITE TO RUE SITE CDI. ABD SOFT AND DISTENDED. PT TOOK MEDICATIONS, REPOSITIONED TO RT SIDE. BED IN LOW POSITION, BED ALARM ON, CALL LIGHT WITHIN REACH.
[2023-02-26 01:31] VITALS: BP_SYST 125
[2023-02-26] MEDS: MEROPENEM 1 GM IVPB PREMIX 50 ML IV SCH ×2 (04:27→16:28)
[2023-02-26 07:52] VITALS: BP_SYST 111
--- NOTE | 2023-02-26 08:00 | NUR ---
Initial notes Received patient sleeping in bed, A/Ox2 forgetful no signs pain/SOB/, respiration even and unlabored, no signs of distress. IV right AC #20g patent, no signs of infiltration. Incontinent, clean and pat dry, reposition patient in bed. Continue to maintain safety precaution, bed in low position, call light w/in reached.
[2023-02-26] MEDS: MAGNESIUM OXIDE 400 MG TABLET PO SCH ×3 (09:00→21:00)
[2023-02-26] MEDS: POTASSIUM CHLORIDE 20 MEQ/PKT PACKET PO SCH ×4 (09:00→21:00)
[2023-02-26] MEDS: MEGESTROL ACETATE 400 MG/10 ML UDC PO SCH (09:00)
[2023-02-26] MEDS: MINERAL OIL 30 ML UDC PO SCH (09:00)
--- NOTE | 2023-02-26 10:00 | NUR ---
Refused all morning scheduled medication, educate/ reenforce but patient states "I dont want it".
--- NOTE | 2023-02-26 11:42 | NUR ---
Telephone call made to [facility], . Dr. Mendieta, in order to advise the clinic of a telepsych order that has been written since 02.24.23. The front supervisory cbp officer, Radha, advised that she would page the electronics tech to have them call the nurse and carry out the consult. Contact information for LEANNE Castellano provided to Radha. Per Radha, there was nothing else needed on my behalf. LEANNE Castellano advised of the follow up made for the consult and informed that the electronics tech will be calling her to carry out the consult. [facility]: [phone]
--- NOTE | 2023-02-26 12:00 | NUR ---
Reposition w/out refusal, no signs of distress, no c/o pain/SOB, continue to maintain safety precaution
[2023-02-26 12:09] VITALS: BP_SYST 126
--- NOTE | 2023-02-26 13:09 | NUR ---
RN MEDICALLY CLEARED PATIENT FOR PT TREATMENT, HOWEVER PATIENT REFUSED TREATMENT. MAX ENCOURAGEMENT GIVEN TO PATIENT BUT SHE WOULD TURN HER HEAD AWAY AND NOT RESPOND. WILL TRY AGAIN TOMORROW.
--- NOTE | 2023-02-26 14:28 | NUR ---
PT HAD ZOOM MEETING WITH EDDIE MCGILL (PSYCHIATRIST). PROVIDED 'S NUMBER TO . SAID HE WILL CALL .
[2023-02-26] MEDS: D5LR 1,000 ML IV SCH (15:34)
--- NOTE | 2023-02-26 15:52 | NUR ---
CM: SNF search: [facility] faxed referral to [facility] and [facility] this am. I received call back from [facility]: the pt is accepted , no iso bed today but possible tomorrow. Aditi/Eloina ALONZO # [phone] made aware. >> DC barriers: needs final dc order from dr. Martin and to send the order to saba Alfaro /Eloina alonzo for snf authorization . Chanel, director made aware.
[2023-02-26 16:28] VITALS: BP_SYST 121
[2023-02-26] MEDS: MIRTAZAPINE 15 MG TABLET PO SCH (18:00)
--- NOTE | 2023-02-26 19:00 | NUR ---
Closing A/Ox2 forgetful no signs pain/SOB/, respiration even and unlabored, no signs of distress. IV right AC#20g patent, maintain safety precaution during my shift, will endorse.
--- NOTE | 2023-02-26 19:30 | NUR ---
OPENING NOTE Pt is awake lying in bed. No s/s of respiratory distress. Breathing even and unlabored on RA. IV site intact and patent with fluids running at ordered rate. Fall and safety precautions in place with bed in lowest position, bed alarm on, and call light within reach
[2023-02-26 20:00] VITALS: BP_SYST 137
[2023-02-26] MEDS ORDERED: POTASSIUM CHLORIDE 40 MEQ, LIDOCAINE JECT 2% PF 100 MG 50 MG in NS 250 ML IV ONE (20:00)
--- NOTE | 2023-02-26 21:05 | NUR ---
PT REFUSED MEDS Educated on the importance of taking the meds, still refused stating "I don't want anything"
[2023-02-27] VITALS: BP_SYST 148
--- NOTE | 2023-02-27 00:15 | NUR ---
ROUNDS Pt lying in bed, eyes closed. No s/s of acute distress. Breathing even and unlabored. Fall and safety checks in place
[2023-02-27] MEDS: MEROPENEM 1 GM IVPB PREMIX 50 ML IV SCH ×2 (04:38→16:41)
[2023-02-27 06:32] LABS: BASOPHILS # (AUTO) 0.1 K/uL (0.0-0.2); BASOPHILS % (AUTO) 0.6 % (0.0-2.0); EOSINOPHILS # (AUTO) 0.3 K/uL (0.0-0.4); EOSINOPHILS % (AUTO) 2.3 % (0.0-4.0); HEMATOCRIT 39.9 % (36-48); HEMOGLOBIN 13.1 g/dL (12.0-16.0); MEAN CORPUSCULAR HEMOGLOBIN 31 pg (27-31); MEAN CORPUSCULAR HGB CONC 33 % (32-36); MEAN CORPUSCULAR VOLUME 93 fL (79.0-98.0); MONOCYTES # (AUTO) 1.1 K/uL (0.0-1.0); MONOCYTES % (AUTO) 10.3 % (1.7-9.3); NEUTROPHILS # (AUTO) 7.6 K/uL (1.8-7.7); NEUTROPHILS % (AUTO) 68.8 % (40.0-70.0); PLATELET COUNT (AUTO) 217 K/uL (130-430); RED CELL DISTRIBUTION WIDTH 18.2 % (9.0-15.0)
[2023-02-27 06:59] LABS: ALANINE AMINOTRANSFERASE 8 U/L (12-78); ALBUMIN 1.7 g/dL (3.4-4.8); ANION GAP 3 (5-15); ASPARTATE AMINOTRANSFERASE 16 U/L (10-37); CALCIUM 9.1 mg/dL (8.4-11.0); CHLORIDE 109 mmol/L (98-107); CREATININE 0.58 mg/dL (0.55-1.30); GLUCOSE 71 mg/dL (70-99); TOTAL BILIRUBIN 0.8 mg/dL (0.0-1.0); UREA NITROGEN, BLOOD 13 mg/dL (8-21)
--- NOTE | 2023-02-27 07:02 | NUR ---
CLOSING NOTE Pt is awake lying in bed. No s/s of respiratory distress. Breathing even and unlabored on RA. IV site intact and patent with fluids running at ordered rate. All needs met throughout shift. Fall and safety precautions in place with bed in lowest position, bed alarm on, and call light within reach
[2023-02-27 07:56] VITALS: BP_SYST 144
--- NOTE | 2023-02-27 08:00 | NUR ---
Start of shift Pt resting in bed, refuses to eat any of her breakfast. Pt's bed in low position and bed rails raised at this time. Pt next to nurses' station for close observation for needs and care. Call light within reach.
[2023-02-27] MEDS: POTASSIUM CHLORIDE 20 MEQ/PKT PACKET PO SCH ×4 (08:37→21:00)
[2023-02-27] MEDS: MAGNESIUM OXIDE 400 MG TABLET PO SCH ×3 (08:37→21:00)
[2023-02-27] MEDS: MEGESTROL ACETATE 400 MG/10 ML UDC PO SCH (08:43)
[2023-02-27] MEDS: MINERAL OIL 30 ML UDC PO SCH (08:43)
[2023-02-27] MEDS ORDERED: MIRT-114 PO (11:52)
[2023-02-27] MEDS ORDERED: POTASSIUM CHLOR 20 mEq/Packet PO (11:52)
[2023-02-27] MEDS ORDERED: MEGE400O4 PO (11:52)
--- NOTE | 2023-02-27 11:55 | NUR ---
PHYSICAL THERAPY CO-SIGN The Physical Therapy Progress Notes documented by Plant Anatomist have been reviewed. Reviewed/Co-Signed by: Mohsen Apodaca Documentation Done by:JACY FLORENCE Addendum: 02/27/23 at 1156 by Mohsen Apodaca PT Amended: Links added.
[2023-02-27 12:00] VITALS: BP_SYST 126
--- NOTE | 2023-02-27 12:00 | NUR ---
Note Dr Martin was on the floor to assess pt and write orders. Dr Martin was informed that pt was refusing all PO medications and food/drink. Pt was willing to work in PT on bed exercises and bed mobility. Pt has RAC IV which is intact and patent all shift. Call light within reach.
--- NOTE | 2023-02-27 13:04 | NUR ---
Spoke w/ Angelina at [facility]-[phone]-slox clinicals-she will look for SNF placement- Placed call to Shahram at [facility] regarding possible SNF placement [phone]. Patient will need isolation bed.
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
--- NOTE | 2023-02-27 15:35 | NUR ---
Note Pt resting in bed and denies any needs at this time. Call light within reach.
[2023-02-27 15:59] VITALS: BP_SYST 122
--- NOTE | 2023-02-27 16:50 | NUR ---
Note Called and spoke to Michelle (niece) [phone] and update given. Questions/concerns were answered.
[2023-02-27] MEDS: MIRTAZAPINE 15 MG TABLET PO SCH (18:00)
[2023-02-27] MEDS: D5LR 1,000 ML IV SCH (18:13)
--- NOTE | 2023-02-27 18:20 | NUR ---
End of shift Pt lying down in bed with HOB at 30', drinking her Ensure - wants to stay in that position. Pt next to nurses' station for close observation. Side rails raised, bed in low position and bed alarm on. IV intact and patent at this time. No needs noted at this time. Call light within reach. No needs noted at this time.
[2023-02-27 20:00] VITALS: BP_SYST 146
--- NOTE | 2023-02-28 00:20 | NUR ---
ROUNDS Pt lying in bed, eyes closed. Breathing even and unlabored. Fall and safety checks in place
[2023-02-28 00:37] VITALS: BP_SYST 131
[2023-02-28] MEDS: MEROPENEM 1 GM IVPB PREMIX 50 ML IV SCH ×2 (04:45→16:26)
--- NOTE | 2023-02-28 06:52 | NUR ---
CLOSING NOTE Pt is lying in bed. No s/s of respiratory distress. Breathing even and unlabored on RA. IV site intact and patent with fluids running at ordered rate. All needs met throughout shift. Fall and safety precautions in place with bed in lowest position, bed alarm on, and call light within reach
[2023-02-28 08:00] VITALS: BP_SYST 124
[2023-02-28] MEDS: MINERAL OIL 30 ML UDC PO SCH (09:00)
[2023-02-28] MEDS: MAGNESIUM OXIDE 400 MG TABLET PO SCH ×3 (09:00→21:00)
[2023-02-28] MEDS: POTASSIUM CHLORIDE 20 MEQ/PKT PACKET PO SCH ×4 (09:00→21:42)
[2023-02-28] MEDS: MEGESTROL ACETATE 400 MG/10 ML UDC PO SCH (09:00)
[2023-02-28 11:30] VITALS: BP_SYST 130
[2023-02-28] MEDS: D5LR 1,000 ML IV SCH (12:17)
[2023-02-28 15:28] VITALS: BP_SYST 110
--- NOTE | 2023-02-28 15:45 | NUR ---
PHYSICAL THERAPY CO-SIGN The Physical Therapy Progress Notes documented by Shoe Polisher have been reviewed. Reviewed/Co-Signed by: Mohsen Apodaca Documentation Done by:JACY FLORENCE Addendum: 02/28/23 at 1546 by Mohsen Apodaca PT Amended: Links added.
[2023-02-28] MEDS: MIRTAZAPINE 15 MG TABLET PO SCH (16:18)
--- NOTE | 2023-02-28 17:08 | NUR ---
Nutrition F/U RD reviewed pts current EMR including diet hx, physician notes, nursing notes, pertinent labs/meds/procedures, care trends and care activity. Subjective Information RD rounded to pt's bedside this afternoon. Pt was able to engage in simple conversation w/ this RD, however, was a bit [id number]. She reported that she prefers fresh soft fruits versus fruit cocktail cups as well as coffee w/ meals. RD noted in Computrition. RD encouraged pt to try to increase PO intakes and Ensure ONS consumption to prevent unintentional wt loss and risk for malnutrition; pt acknowledged. Per EMR review, pt's wt has been stable, pt is receiving D5/LR at 30 ml/hr (122 kcal/day),;pt has been refusing meals; +confusion/disorientation noted. Pt is not meeting nutritional needs. Current Diet Order/Nutrition Support Soft (low-fiber/bland), chopped diet w/ Ensure BID x3 days % PO intake Negligible 17% x5 meal records Last BM x4 02/28 Estimated Energy Expenditure (kcals/day) 1494-4756 kcal (25-30 kcal/kg ABW 64kg d/t GERIAT) Estimated Protein Required (g/day) 51-77g (0.8-1.2 g/kg ABW 64kg d/t GERIAT) Estimated Fluid Required (l/day) Refer to MD (fluid overload) Problem/Etiology/Signs/Symptoms * Complicated GI function R/T ileus AEB N/V. *Improved Expected Outcomes/Goals PO intake provides >85% estimated nutrient needs, nutrition-related labs trending WNL, continued skin integrity, BM q1-3 days Dietitian Recommendations * Continue Soft (low-fiber/bland), chopped diet w/ Ensure BID * Snacks TID w/ meals * Consider appetite stimulant Follow up * High Risk: RD to F/U within 2-3 days Addendum: 02/28/23 at [address] CORRECTION: Problem/Etiology/Signs/Symptoms * Complicated GI function R/T ileus AEB N/V. *Improved * Suboptimal nutritional intakes R/T lack of appetite likely a/w confusion/disorientation AEB negligible PO intake records. *New
--- NOTE | 2023-02-28 17:14 | NUR ---
Dietitian Recommendations * Continue Soft (low-fiber/bland), chopped diet w/ Ensure BID * Snacks TID w/ meals * Consider appetite stimulant LP, MS, RD Please refer to Nutrition F/U for details.
--- NOTE | 2023-02-28 18:44 | NUR ---
pt refused all po medication during shift
[2023-02-28 21:00] VITALS: BP_SYST 137
--- NOTE | 2023-02-28 21:45 | NUR ---
left knee wound PICTURE taken and put in medical Record / .
[2023-03-01] VITALS: BP_SYST 124
--- NOTE | 2023-03-01 03:49 | NUR ---
Hourly Rounding patient is Resting Reposition & Turn on schedule kept clean also dry as needed call gerardo given to patient .
[2023-03-01] MEDS: MEROPENEM 1 GM IVPB PREMIX 50 ML IV SCH ×2 (05:56→17:58)
[2023-03-01 08:00] VITALS: BP_SYST 129
[2023-03-01] MEDS: MEGESTROL ACETATE 400 MG/10 ML UDC PO SCH (09:00)
[2023-03-01] MEDS: MINERAL OIL 30 ML UDC PO SCH (09:51)
[2023-03-01] MEDS: POTASSIUM CHLORIDE 20 MEQ/PKT PACKET PO SCH ×4 (09:51→21:00)
[2023-03-01] MEDS: MAGNESIUM OXIDE 400 MG TABLET PO SCH ×3 (09:51→20:55)
--- NOTE | 2023-03-01 11:10 | NUR ---
ASSUMED CARE OF PATIENT Received report from Samuel PERDOMO. Received pt AAOx1, pt did not know where she was or why she was here. Explained to pt she is in [facility] for Abd Pain and UTI. Pt on Contact isolation for ESBL/MDRO of the urine. IVF infusing well at ordered rate with no s/s infiltration to site. Aspiration, skin and safety precautions remain in place. Call light within reach.
[2023-03-01 11:38] VITALS: BP_SYST 139
[2023-03-01] MEDS: D5LR 1,000 ML IV SCH (12:15)
[2023-03-01 17:56] VITALS: BP_SYST 141
[2023-03-01] MEDS: MIRTAZAPINE 15 MG TABLET PO SCH (18:00)
--- NOTE | 2023-03-01 18:40 | NUR ---
CLOSING NOTE Pt resting quietly in bed with no s/s resp distress, no c/o pain or discomfort. IVF infusing well at ordered rate with no s/s infiltration to site. Contact isolation precautions maintained throughout shift. Aspiration, skin and safety precautions remain in place. Call light within reach.
--- NOTE | 2023-03-01 19:50 | NUR ---
OPENING NOTES RECEIVED PATIENT AT BEDSIDE. PATIENT WAS ASLEEP. WOKE PATIENT UP TO CHECK VITALS. PATIENT WAS AXO X2. PATIENT CAN STATE NAME AND DATE OF , WHAT THE YEAR IS. DOES NOT REMEMBER WHERE THEY ARE AT. ALL NEEDS WERE MET AT THIS TIME. SAFETY CHECKS WERE DONE. CALL LIGHT WITHIN REACH.
--- NOTE | 2023-03-01 20:30 | NUR ---
MEDICATION PT REFUSED POTASSIUM.
[2023-03-01 20:35] VITALS: BP_SYST 126
[2023-03-02 00:13] VITALS: BP_SYST 127
--- NOTE | 2023-03-02 07:13 | NUR ---
CLOSING NOTES PATIENT IS ASLEEP IN BED. NO S/S OF DISTRESS. PATIENT IS CHANGED AND ALL NEEDS ARE MET AT THIS TIME. SAFETY CHECKS DONE. CALL LIGHT WITH IN REACH
[2023-03-02] MEDS: MAGNESIUM OXIDE 400 MG TABLET PO SCH ×3 (09:00→21:00)
[2023-03-02] MEDS: MEGESTROL ACETATE 400 MG/10 ML UDC PO SCH (09:00)
[2023-03-02] MEDS: MINERAL OIL 30 ML UDC PO SCH (09:00)
[2023-03-02] MEDS: POTASSIUM CHLORIDE 20 MEQ/PKT PACKET PO SCH ×4 (09:00→21:00)
[2023-03-02 11:49] VITALS: BP_SYST 139
[2023-03-02] MEDS: D5LR 1,000 ML IV SCH ×2 (12:15→22:48)
[2023-03-02 16:00] VITALS: BP_SYST 125
[2023-03-02] MEDS: MIRTAZAPINE 15 MG TABLET PO SCH (18:00)
[2023-03-02 20:30] VITALS: BP_SYST 145
--- NOTE | 2023-03-02 22:58 | NUR ---
OPENING NOTES RECEIVED PATIENT BEDSIDE. PATIENT WAS AXO 3. PATIENT STATED HAVING ABDOMINAL PAIN WHEN TRYING TO EAT. PATIENT REFUSED MEDICATIONS WELL DUE TO ABDOMINAL DISCOMFORT WHEN TAKING THEM. VITALS WERE DONE. SAFETY CHECKS DONE AND CALL LIGHT WITHIN REACH.
[2023-03-03] VITALS: BP_SYST 136
--- NOTE | 2023-03-03 05:18 | NUR ---
CLOSING NOTES PATIENT IS LYING IN BED. DRESSING ON LEFT KNEE IS CHANGED. NO S/S OF DISTRESS OR DISCOMFORT. SAFETY CHECKS DONE. CALL LIGHT WITH IN REACH.
[2023-03-03 05:34] LABS: BASOPHILS # (AUTO) 0.1 K/uL (0.0-0.2); BASOPHILS % (AUTO) 0.9 % (0.0-2.0); EOSINOPHILS # (AUTO) 0.3 K/uL (0.0-0.4); EOSINOPHILS % (AUTO) 3.2 % (0.0-4.0); HEMATOCRIT 36.4 % (36-48); HEMOGLOBIN 11.9 g/dL (12.0-16.0); LYMPHOCYTES # (AUTO) 1.7 K/uL (1.0-5.5); LYMPHOCYTES % (AUTO) 19.2 % (20.5-51.5); MEAN CORPUSCULAR HEMOGLOBIN 30 pg (27-31); MEAN CORPUSCULAR HGB CONC 33 % (32-36); MEAN CORPUSCULAR VOLUME 92 fL (79.0-98.0); MONOCYTES # (AUTO) 0.8 K/uL (0.0-1.0); MONOCYTES % (AUTO) 9.5 % (1.7-9.3); NEUTROPHILS # (AUTO) 5.8 K/uL (1.8-7.7); NEUTROPHILS % (AUTO) 67.2 % (40.0-70.0); PLATELET COUNT (AUTO) 199 K/uL (130-430); RED BLOOD CELL COUNT(AUTO) 3.97 MIL/uL (4.2-6.2); RED CELL DISTRIBUTION WIDTH 17.7 % (9.0-15.0); WHITE BLOOD COUNT (AUTO) 8.6 K/uL (4.8-10.8)
[2023-03-03 06:10] LABS: ALANINE AMINOTRANSFERASE 9 U/L (12-78); ALBUMIN 1.4 g/dL (3.4-4.8); ANION GAP 5 (5-15); ASPARTATE AMINOTRANSFERASE 19 U/L (10-37); CALCIUM 8.3 mg/dL (8.4-11.0); CHLORIDE 107 mmol/L (98-107); CREATININE 0.46 mg/dL (0.55-1.30); GLUCOSE 52 mg/dL (70-99); TOTAL BILIRUBIN 0.5 mg/dL (0.0-1.0); UREA NITROGEN, BLOOD 9 mg/dL (8-21)
--- NOTE | 2023-03-03 06:23 | NUR ---
PAGED PAGED GOLDIE HALL AT [phone] SPOKE WITH GUICHO.
[2023-03-03 08:00] VITALS: BP_SYST 138
[2023-03-03] MEDS: POTASSIUM CHLORIDE 40 MEQ in NS 250 ML IV SCH ×2 (09:51→11:00)
[2023-03-03] MEDS: MEGESTROL ACETATE 400 MG/10 ML UDC PO SCH (09:54)
[2023-03-03] MEDS: MINERAL OIL 30 ML UDC PO SCH (09:54)
[2023-03-03] MEDS: POTASSIUM CHLORIDE 20 MEQ/PKT PACKET PO SCH ×4 (09:55→21:54)
[2023-03-03] MEDS: MAGNESIUM OXIDE 400 MG TABLET PO SCH ×3 (09:55→21:54)
--- NOTE | 2023-03-03 11:00 | NUR ---
iv access pt agreeable at first to allow iv insertion. no iv access at this time. when RN attempted iv insertion pt became agitated and yelled out. explained pt must remain still so iv can be inserted to administer potassium. pt states loudly "do you know how many times I've been told that?!" and "take it out you've poked me 4 times already" iv needle had only just been inserted through skin when pt became upset. removed and not attempted again. RN Elvia aware. ice pack applied to left hand. pt also upset she does not have an "ice cream drumstick"
[2023-03-03 11:07] VITALS: BP_SYST 130
--- NOTE | 2023-03-03 12:34 | NUR ---
Nutrition F/U RD reviewed pts current EMR including diet hx, physician notes, nursing notes, pertinent labs/meds/procedures, care trends and care activity. Subjective Information RD rounded to pt's bedside this afternoon. She really does not like the food served here, this is the reason for her poor intake. Pt gave preferences; RD added in computrition. Pt wanted a drumstick ice cream and RD went out and brought one back; pt was very happy. She does not want Ensure anymore; RD updated diet order. Per EMR review, pt's wt has been stable, abd distended, soft w/ active bowel sounds; D5LR @ 30mL/hr (provides 122 kcal). Pt is currently not meeting nutritional needs. Current Diet Order/Nutrition Support Soft (low-fiber/bland), chopped diet w/ Ensure BID x 6 days % PO intake Negligible: <20%; many meals refused Last BM X1: 4/2 Estimated Energy Expenditure (kcals/day) 8431-9829 kcal (25-30 kcal/kg ABW 64kg d/t GERIAT) Estimated Protein Required (g/day) 51-77g (0.8-1.2 g/kg ABW 64kg d/t GERIAT) Estimated Fluid Required (l/day) Refer to MD (fluid overload) Problem/Etiology/Signs/Symptoms * Complicated GI function R/T ileus AEB N/V. *Improved * Suboptimal nutritional intakes R/T lack of appetite likely a/w confusion/disorientation AEB negligible PO intake records. *Ongoing Expected Outcomes/Goals PO intake provides >85% estimated nutrient needs, nutrition-related labs trending WNL, continued skin integrity, BM q1-3 days Dietitian Recommendations * Recommend regular diet, to increase PO intake * DC Ensure, d/t pt preference * Snacks TID w/ meals * Consider appetite stimulant Follow up * High Risk: RD to F/U within 2-3 days
--- NOTE | 2023-03-03 12:36 | NUR ---
Dietitian Recommendations * Recommend regular diet, to increase PO intake * DC Ensure, d/t pt preference * Snacks TID w/ meals * Consider appetite stimulant GS, MPH, RD Please refer to Nutrition F/U for further details. Thanks!
--- NOTE | 2023-03-03 14:56 | NUR ---
PHYSICAL THERAPY CO-SIGN The Physical Therapy Progress Notes documented by Mortgage Branch Manager have been reviewed. Reviewed/Co-Signed by: Mohsen Apodaca Documentation Done by:MARIA TOMLINSON Addendum: 03/03/23 at 1456 by Mohsen Apodaca PT Amended: Links added.
--- NOTE | 2023-03-03 15:05 | NUR ---
PHYSICAL THERAPY CO-SIGN The Physical Therapy Progress Notes documented by Tree Killer have been reviewed. Reviewed/Co-Signed by: Mohsen Apodaca Documentation Done by:JACY FLORENCE Addendum: 03/03/23 at 1505 by Mohsen Apodaca PT Amended: Links added.
[2023-03-03 17:17] VITALS: BP_SYST 125
[2023-03-03] MEDS: MIRTAZAPINE 15 MG TABLET PO SCH (18:00)
--- NOTE | 2023-03-03 19:40 | NUR ---
Patient decided to cooperate taking her meds and being cooperative in the late afternoon after the doctor spoke to her. Previously she had been refusing everything, however, at dinner time she was taking her medication and being generally upbeat and pleasant. She said, "I'll do whatever I need to do, I don't want to ." Vitals were stable and no fever. She ate 50% of her dinner and had an ice cream that she requested. Will continue to monitor.
[2023-03-04] VITALS: BP_SYST 121
[2023-03-04 06:30] VITALS: BP_SYST 124
--- NOTE | 2023-03-04 06:44 | NUR ---
PT VITALS ARE STABLE. NO SIGNS OF DISTRESS . SCHEDULED MEDICATIONS ARE ADMINISTERED. PT LIES COMFORTABLE IN HER BED CALL LIGHT IS WITHIN REACH . COMFORT MEASURES ARE PROVIDED.
--- NOTE | 2023-03-04 09:35 | NUR ---
Art Therapist re: Hospice eval In to see patient at bedside to discuss her newest order for a hospice eval. I explained what hospice it, and how it works. We discussed its service being a medicare benefit that she can receive in her home with the appropriate necessary care that she will need. The patient is in agreement to the hospice eval. I advised her that I would send out a clinical packet for a hospice agency to review. We discussed multiple agencies, and she requested I "just send it out". A Choice Letter was completed at bedside and placed in her clinical chart. A clinical packet was sent out to [facility]. I spoke with Idalia Vidal, who advised she would have the packet reviewed by a clinical staff and she would touches bases with me later in the day. [facility]: [phone]; F: [phone]
[2023-03-04] MEDS: MAGNESIUM OXIDE 400 MG TABLET PO SCH ×3 (09:50→21:00)
[2023-03-04] MEDS: MINERAL OIL 30 ML UDC PO SCH (09:50)
[2023-03-04] MEDS: POTASSIUM CHLORIDE 20 MEQ/PKT PACKET PO SCH ×4 (09:51→21:32)
[2023-03-04] MEDS: MEGESTROL ACETATE 400 MG/10 ML UDC PO SCH (09:51)
--- NOTE | 2023-03-04 10:00 | NUR ---
patients k+ 2.2, aware, patient on supplemental k+ qid, no further interventions at this time
[2023-03-04 12:00] VITALS: BP_SYST 142
--- NOTE | 2023-03-04 12:10 | NUR ---
Received call from Idalia Vidal at [facility]. The clinical packet has been reviewed and her and the EMPLOYEE HEALTH NURSE Cocoa Bean Roaster will come in to bedside to complete an in person assessment. LEANNE Tucker attempted to be made aware, however she was unavailable. LEANNE Canada made aware of hospice plans.
[2023-03-04] MEDS: D5LR 1,000 ML IV SCH (12:15)
--- NOTE | 2023-03-04 12:30 | NUR ---
patient refused lunch, was able to convince her to eat fruit on her plate
--- NOTE | 2023-03-04 14:00 | NUR ---
[facility] in to meet with patient. They had a chance to assess patient and review the clinical chart of the patient. The agency has determined that it is unsafe for the patient to return home, as she is in need of more care then what she had in place. They indicated they will be looking for SNF placement for the patient. The agency is requesting to get assistance from the hospital to start the medical application. The agency advised that we will reach out to our company that assists with applying our patient's to medical.
--- NOTE | 2023-03-04 15:04 | NUR ---
PHYSICAL THERAPY CO-SIGN The Physical Therapy Progress Notes documented by [employer] Certified Internetwork Expert have been reviewed. Reviewed/Co-Signed by: Mohsen Apodaca Documentation Done by:JACY FLORENCE Addendum: 03/04/23 at 1504 by Mohsen Apodaca PT Amended: Links added.
--- NOTE | 2023-03-04 16:27 | NUR ---
Spoke to Washington Arango at [facility] [phone], requested he begin MediCal application for the patient, so we can secure placement for the patient under hospice care.
--- NOTE | 2023-03-04 16:30 | NUR ---
ce pugh from [facility] at bedside, consents obtained to sign up patient for their services, reports they are waiting for a snf bed
[2023-03-04] MEDS: MIRTAZAPINE 15 MG TABLET PO SCH (18:03)
[2023-03-04 18:37] VITALS: BP_SYST 131
[2023-03-04 19:13] LABS: ALANINE AMINOTRANSFERASE 8 U/L (12-78); ALBUMIN 1.5 g/dL (3.4-4.8); ANION GAP 5 (5-15); ASPARTATE AMINOTRANSFERASE 18 U/L (10-37); CALCIUM 8.5 mg/dL (8.4-11.0); CHLORIDE 108 mmol/L (98-107); CREATININE 0.51 mg/dL (0.55-1.30); GLUCOSE 77 mg/dL (70-99); TOTAL BILIRUBIN 0.5 mg/dL (0.0-1.0); UREA NITROGEN, BLOOD 10 mg/dL (8-21)
--- NOTE | 2023-03-04 19:20 | NUR ---
RECEIVED REPORT ON PATIENT FROM LEANNE SHABAZZ, ASSUMED CARE, AND STARTED ASSESSMENT.
[2023-03-04 20:00] VITALS: BP_SYST 128
[2023-03-05 02:26] VITALS: BP_SYST 130
[2023-03-05 06:23] LABS: ANION GAP 3 (5-15); CALCIUM 8.5 mg/dL (8.4-11.0); CHLORIDE 108 mmol/L (98-107); CREATININE 0.42 mg/dL (0.55-1.30); GLUCOSE 61 mg/dL (70-99); UREA NITROGEN, BLOOD 9 mg/dL (8-21)
[2023-03-05 06:33] LABS: BASOPHILS # (AUTO) 0.1 K/uL (0.0-0.2); BASOPHILS % (AUTO) 0.7 % (0.0-2.0); EOSINOPHILS # (AUTO) 0.2 K/uL (0.0-0.4); EOSINOPHILS % (AUTO) 2.2 % (0.0-4.0); HEMATOCRIT 37.2 % (36-48); HEMOGLOBIN 12.4 g/dL (12.0-16.0); LYMPHOCYTES # (AUTO) 1.8 K/uL (1.0-5.5); LYMPHOCYTES % (AUTO) 20.8 % (20.5-51.5); MEAN CORPUSCULAR HEMOGLOBIN 31 pg (27-31); MEAN CORPUSCULAR HGB CONC 34 % (32-36); MEAN CORPUSCULAR VOLUME 92 fL (79.0-98.0); MONOCYTES # (AUTO) 0.7 K/uL (0.0-1.0); MONOCYTES % (AUTO) 8.4 % (1.7-9.3); NEUTROPHILS # (AUTO) 5.7 K/uL (1.8-7.7); NEUTROPHILS % (AUTO) 67.9 % (40.0-70.0); PLATELET COUNT (AUTO) 193 K/uL (130-430); RED BLOOD CELL COUNT(AUTO) 4.06 MIL/uL (4.2-6.2); RED CELL DISTRIBUTION WIDTH 17.6 % (9.0-15.0); WHITE BLOOD COUNT (AUTO) 8.4 K/uL (4.8-10.8)
[2023-03-05 08:00] VITALS: BP_SYST 117
[2023-03-05] MEDS: MEGESTROL ACETATE 400 MG/10 ML UDC PO SCH (09:30)
[2023-03-05] MEDS: MINERAL OIL 30 ML UDC PO SCH (09:30)
[2023-03-05] MEDS: MAGNESIUM OXIDE 400 MG TABLET PO SCH ×3 (09:30→21:00)
[2023-03-05] MEDS: POTASSIUM CHLORIDE 20 MEQ/PKT PACKET PO SCH ×4 (09:30→21:00)
--- NOTE | 2023-03-05 10:11 | NUR ---
Russell referral emailed to [place] for assistance with applying for medical on behalf of the patient. At this time, medical is needed to assist with senior living placement of the patient.
[2023-03-05] MEDS: D5LR 1,000 ML IV SCH (11:16)
[2023-03-05 12:00] VITALS: BP_SYST 121
--- NOTE | 2023-03-05 14:31 | NUR ---
PHYSICAL THERAPY CO-SIGN The Physical Therapy Progress Notes documented by Electrotype Finisher have been reviewed. Reviewed/Co-Signed by: Mohsen Apodaca Documentation Done by:JACY FLORENCE Addendum: 03/05/23 at 1431 by Mohsen Apodaca PT Amended: Links added.
--- NOTE | 2023-03-05 15:00 | NUR ---
Received call from Washington Arango who advised that he has started on the referral called in yesterday. he states he received my application. Washington has been in touch with the half sister, Lay, whom he states was able to provide some information, but she did not have details. He advised he would be sending a form that needs to be signed by the drJonnathan in order to have a county search completed so that it can be known what funds and assets the patient is working with. Received a call from Idalia of [facility], who was calling to inquire about the status of the medical application. I advised her that the application has been started and the need for a county review to determine her funding and assets. At this time, the hospice continues to look for placement on behalf of the patient.
--- NOTE | 2023-03-05 15:35 | NUR ---
PATIENT SAYS SHE NEEDS TO TALK TO HER DOCTOR BECAUSE SHE HAS INFORMATION SHE DID NOT TELL HIM BEFORE.
[2023-03-05 16:00] VITALS: BP_SYST 118
[2023-03-05] MEDS: MIRTAZAPINE 15 MG TABLET PO SCH (18:00)
--- NOTE | 2023-03-05 19:15 | NUR ---
OPENING NOTE REPORT RECEIVED FROM DAYSHIFT NURSE. PATIENT RECEIVED LYING IN BED, NO S/S OF ACUTE DISTRESS. BREATHING EVEN AND UNLABORED. IV SITE PATENT, NO SIGNS OF INFILTRATION OR INFECTION NOTED. DENIES PAIN. CALL LIGHT WITH PATIENT. BED IS LOCKED AND AT LOWEST POSITION. WILL CONTINUE TO MONITOR.
[2023-03-05 20:00] VITALS: BP_SYST 130
--- NOTE | 2023-03-05 23:00 | NUR ---
ROUNDS PATIENT IN BED, RESTING. NO SIGNS OF DISCOMFORT NOTED. CHEST RISE AND FALL EVEN BILATERALLY. BED ALARM ON. BED IS LOCKED AND AT LOWEST POSITION. CALL LIGHT WITH PATIENT. WILL CONTINUE TO MONITOR.
[2023-03-06] VITALS: BP_SYST 143
--- NOTE | 2023-03-06 03:00 | NUR ---
ROUNDS NO CHANGE FROM PREVIOUS. ALL NEEDS MET. WILL MONITOR.
--- NOTE | 2023-03-06 06:45 | NUR ---
CLOSING NOTE PATIENT IN BED, RESTING. NO S/S OF ACUTE DISTRESS. BREATHING EVEN AND UNLABORED. ALL NEEDS MET THROUGHOUT SHIFT. FALL, SAFETY PRECAUTIONS MAINTAINED THROUGHOUT SHIFT. WILL CONTINUE TO MONITOR UNTIL PATIENT CARE IS ENDORSED TO ONCOMING DAYSHIFT NURSE.
[2023-03-06 08:00] VITALS: BP_SYST 133
--- NOTE | 2023-03-06 08:40 | NUR ---
Telephone call made to the half sister, Lay. She wanted an update as to what is taking place with the patient. Her daughter, Rylee was also on the line. They were advised that the patient received an order for a hospice eval and she was in agreement to hospice services. They are aware that placement is still being worked on.
[2023-03-06] MEDS: MEGESTROL ACETATE 400 MG/10 ML UDC PO SCH (09:00)
[2023-03-06] MEDS: D5LR 1,000 ML IV SCH (12:15)
[2023-03-06 12:46] VITALS: BP_SYST 133
[2023-03-06] MEDS: MINERAL OIL 30 ML UDC PO SCH (14:54)
[2023-03-06] MEDS: MAGNESIUM OXIDE 400 MG TABLET PO SCH ×3 (14:55→20:54)
[2023-03-06] MEDS: POTASSIUM CHLORIDE 20 MEQ/PKT PACKET PO SCH ×4 (14:55→20:54)
--- NOTE | 2023-03-06 15:55 | NUR ---
PHYSICAL THERAPY CO-SIGN The Physical Therapy Progress Notes documented by Director Of Intercollegiate Athletics have been reviewed. Reviewed/Co-Signed by: Mohsen Apodaca Documentation Done by:JACY FLORENCE Addendum: 03/06/23 at 1555 by Mohsen Apodaca PT Amended: Links added.
--- NOTE | 2023-03-06 16:19 | NUR ---
Nutrition F/U RD reviewed pts current EMR including diet hx, physician notes, nursing notes, pertinent labs/meds/procedures, care trends and care activity. Admission Dx: Bowel Obstruction, Hypokalemia Subjective Information: Per LOS meeting this morning, pt is pending hospice placement. Per EMR review, wt has been stable at 172# since 02/22; pt is eating more, though still considered negligible PO intakes; pt is refusing appetite stimulant. Pt continues at risk for malnutrition and is not meeting nutritional needs. Current Diet Order/Nutrition Support: Soft (low-fiber/bland) x3 days % PO intake: Negligible <20%; many meals refused Last BM: x4 03/06 Estimated Energy Expenditure (kcals/day) 6488-1989 kcal (25-30 kcal/kg ABW 64kg d/t GERIAT) Estimated Protein Required (g/day) 51-77g (0.8-1.2 g/kg ABW 64kg d/t GERIAT) Estimated Fluid Required (l/day) Refer to MD (fluid overload) Problem/Etiology/Signs/Symptoms * Complicated GI function R/T ileus AEB N/V. *Improved * Suboptimal nutritional intakes R/T lack of appetite likely a/w confusion/disorientation AEB negligible PO intake records. *Ongoing Expected Outcomes/Goals PO intake provides >85% estimated nutrient needs, nutrition-related labs trending WNL, continued skin integrity, BM q1-3 days Dietitian Recommendations * Continue Soft (low-fiber/bland) diet * Continue Snacks TID w/ meals * Continue appetite stimulant * Maximum encouragement at meal times Follow up * High Risk: RD to F/U within 2-3 days
--- NOTE | 2023-03-06 16:25 | NUR ---
Dietitian Recommendations * Continue Soft (low-fiber/bland) diet * Continue Snacks TID w/ meals * Continue appetite stimulant * Maximum encouragement at meal times LP, MS, RD Please refer to Nutrition Assessment for details.
[2023-03-06 17:15] VITALS: BP_SYST 130
[2023-03-06] MEDS: MIRTAZAPINE 15 MG TABLET PO SCH (18:00)
--- NOTE | 2023-03-06 19:15 | NUR ---
OPENING NOTE PATIENT IN BED, RESTING. NO S/S OF ACUTE DISTRESS. BREATHING EVEN AND UNLABORED. IV SITE PATENT, NO SIGNS OF INFILTRATION OR INFECTION NOTED. CALL LIGHT WITH PATIENT. BED ALARM ON. WILL CONTINUE TO MONITOR.
[2023-03-06 20:00] VITALS: BP_SYST 144
--- NOTE | 2023-03-06 21:00 | NUR ---
REFUSE MEDS PATIENT REFUSING SCHEDULED MEDICATIONS AT THIS TIME. EDUCATED ON ITS PURPOSE AND BENEFITS, PATIENT STILL REFUSING.
--- NOTE | 2023-03-07 01:00 | NUR ---
ROUNDS PATIENT IN BED, RESTING. NO SIGNS OF DISCOMFORT. WILL CONTINUE TO MONITOR.
--- NOTE | 2023-03-07 06:31 | NUR ---
CLOSING NOTE PATIENT IN BED, RESTING COMFORTABLY. NO S/S OF ACUTE DISTRESS. BREATHING EVEN AND UNLABORED. IV SITE PATENT, NO SIGNS OF INFILTRATION OR INFECTION NOTED. ALL NEEDS MET THROUGHOUT SHIFT. FALL, SAFETY PRECAUTIONS MAINTAINED THROUGHOUT SHIFT. WILL CONTINUE TO MONITOR UNTIL PATIENT CARE IS ENDORSED TO ONCOMING DAYSHIFT NURSE.
[2023-03-07 07:50] LABS: EOSINOPHILS # (AUTO) 0.1 K/uL (0.0-0.4); EOSINOPHILS % (AUTO) 1.7 % (0.0-4.0); HEMATOCRIT 39.1 % (36-48); HEMOGLOBIN 12.8 g/dL (12.0-16.0); LYMPHOCYTES # (AUTO) 1.7 K/uL (1.0-5.5); LYMPHOCYTES % (AUTO) 23.2 % (20.5-51.5); MEAN CORPUSCULAR HEMOGLOBIN 30 pg (27-31); MEAN CORPUSCULAR HGB CONC 33 % (32-36); MEAN CORPUSCULAR VOLUME 92 fL (79.0-98.0); MONOCYTES # (AUTO) 0.5 K/uL (0.0-1.0); MONOCYTES % (AUTO) 7.2 % (1.7-9.3); PLATELET COUNT (AUTO) 205 K/uL (130-430); RED BLOOD CELL COUNT(AUTO) 4.26 MIL/uL (4.2-6.2); RED CELL DISTRIBUTION WIDTH 17.8 % (9.0-15.0); WHITE BLOOD COUNT (AUTO) 7.2 K/uL (4.8-10.8)
[2023-03-07 08:04] LABS: BASOPHILS % (AUTO) 0.2 % (0.0-2.0); NEUTROPHILS # (AUTO) 4.9 K/uL (1.8-7.7); NEUTROPHILS % (AUTO) 67.7 % (40.0-70.0)
[2023-03-07 08:13] LABS: ALANINE AMINOTRANSFERASE 6 U/L (12-78); ALBUMIN 1.6 g/dL (3.4-4.8); ANION GAP 10 (5-15); ASPARTATE AMINOTRANSFERASE 18 U/L (10-37); CALCIUM 8.5 mg/dL (8.4-11.0); CHLORIDE 105 mmol/L (98-107); CREATININE 0.41 mg/dL (0.55-1.30); TOTAL BILIRUBIN 0.6 mg/dL (0.0-1.0); UREA NITROGEN, BLOOD 7 mg/dL (8-21)
[2023-03-07 08:14] VITALS: BP_SYST 123
[2023-03-07 08:30] LABS: GLUCOSE 44 mg/dL (70-99)
[2023-03-07] MEDS: POTASSIUM CHLORIDE 20 MEQ/PKT PACKET PO SCH ×3 (08:46→20:58)
[2023-03-07] MEDS: MAGNESIUM OXIDE 400 MG TABLET PO SCH ×3 (08:46→20:59)
[2023-03-07] MEDS: MINERAL OIL 30 ML UDC PO SCH (08:46)
[2023-03-07] MEDS: MEGESTROL ACETATE 400 MG/10 ML UDC PO SCH (08:46)
[2023-03-07 12:00] VITALS: BP_SYST 132
[2023-03-07] MEDS: D5LR 1,000 ML IV SCH (12:15)
--- NOTE | 2023-03-07 12:29 | NUR ---
ENDOCRINE CONSULT PAGED PAGED ASH DOBBS AT [phone] LEFT A VOICEMAIL FOR A CONSULT FOR HYPOGLYCEMIA.
--- NOTE | 2023-03-07 13:11 | NUR ---
Received cognition letter from Corinne. This letter is needed to be completed and signed by Dr. Martin in order for the medical application to continue moving forward. At this time, [facility] has to rely on the [facility] to complete a financial assessment of the patient's assets in order to qualify her for medical. The patient will need medial in order to receive the detention care that she will need. The letter was faxed to Dr. Martin at his office as well placed in the physical chart, flagged for his attention. Upon receiving the completed for back, the form will be sent back to [facility] for continued follow up. Conversation held with Idalia at [facility]. Update held with her regarding the status of finding placement for the patient. Idalia is working with [facility] and [facility] for potential placement until the medical is completed.
[2023-03-07] MEDS ORDERED: POTASSIUM CHLORIDE 40 MEQ in D5W 250 ML IV SCH (14:00)
--- NOTE | 2023-03-07 15:47 | NUR ---
PHYSICAL THERAPY CO-SIGN The Physical Therapy Progress Notes documented by Real Estate Job Titles have been reviewed. Reviewed/Co-Signed by: Mohsen Apodaca Documentation Done by:JACY FLORENCE Addendum: 03/07/23 at 1547 by Mohsen Apodaca PT Amended: Links added.
[2023-03-07 16:00] VITALS: BP_SYST 128
[2023-03-07] MEDS: MIRTAZAPINE 15 MG TABLET PO SCH (18:00)
--- NOTE | 2023-03-07 19:15 | NUR ---
OPENING NOTE REPORT RECEIVED FROM DAYSHIFT NURSE. PATIENT RECEIVED LYING IN BED, NO S/S OF ACUTE DISTRESS. BREATHING EVEN AND UNLABORED. NO IV SITE. CALL LIGHT WITH PATIENT. BED IS LOCKED AND AT LOWEST POSITION. BED ALARM ON. WILL MONITOR.
[2023-03-07 20:00] VITALS: BP_SYST 135
--- NOTE | 2023-03-07 21:00 | NUR ---
REFUSED MEDICATIONS/REFUSED IV PATIENT EDUCATED ON PURPOSE OF SCHEDULED MEDICATIONS, PATIENT STILL REFUSED. PATIENT HAS NO IV SITE AT THIS TIME, OFFERED TO INSERT ONE, PATIENT ALSO REFUSED AFTER BEING EDUCATED ON ITS PURPOSE. WILL CONTINUE TO ENCOURAGE THROUGHOUT SHIFT. ALL NEEDS MET AT THIS TIME.CALL LIGHT WITH PATIENT. WILL MONITOR.
--- NOTE | 2023-03-08 01:00 | NUR ---
ROUNDS PATIENT IN BED, RESTING. NO SIGNS OF DISCOMFORT. ALL NEEDS MET. WILL MONITOR.
--- NOTE | 2023-03-08 05:06 | NUR ---
ROUNDS PATIENT IN BED, NO CHANGE FROM PREVIOUS. ALL NEEDS MET. WILL MONITOR.
--- NOTE | 2023-03-08 06:36 | NUR ---
CLOSING NOTE PATIENT IN BED, NO S/S OF ACUTE DISTRESS. BREATHING EVEN AND UNLABORED. NO IV, PATIENT STILL REFUSING. ALL NEEDS MET THROUGHOUT SHIFT. FALL, SAFETY PRECAUTIONS MAINTAINED THROUGHOUT SHIFT. WILL CONTINUE TO MONITOR UNTIL PATIENT CARE IS ENDORSED TO ONCOMING DAYSHIFT NURSE.
[2023-03-08] MEDS: MEGESTROL ACETATE 400 MG/10 ML UDC PO SCH (09:00)
[2023-03-08 11:33] VITALS: BP_SYST 129
[2023-03-08] MEDS: D5LR 1,000 ML IV SCH (12:15)
[2023-03-08 12:45] LABS: ANION GAP 8 (5-15); CALCIUM 8.5 mg/dL (8.4-11.0); CHLORIDE 104 mmol/L (98-107); CREATININE 0.49 mg/dL (0.55-1.30); GLUCOSE 58 mg/dL (70-99); UREA NITROGEN, BLOOD 7 mg/dL (8-21)
[2023-03-08] MEDS: POTASSIUM CHLORIDE 20 MEQ/PKT PACKET PO SCH ×4 (13:00→22:07)
[2023-03-08] MEDS: MINERAL OIL 30 ML UDC PO SCH (13:31)
[2023-03-08] MEDS: MAGNESIUM OXIDE 400 MG TABLET PO SCH ×3 (13:32→21:00)
[2023-03-08 15:21] VITALS: BP_SYST 148
[2023-03-08] MEDS: MIRTAZAPINE 15 MG TABLET PO SCH (18:00)
[2023-03-09 04:00] VITALS: BP_SYST 110
[2023-03-09 08:00] VITALS: BP_SYST 112
[2023-03-09] MEDS: POTASSIUM CHLORIDE 20 MEQ/PKT PACKET PO SCH ×4 (10:18→21:53)
[2023-03-09] MEDS: MEGESTROL ACETATE 400 MG/10 ML UDC PO SCH (10:19)
[2023-03-09] MEDS: MINERAL OIL 30 ML UDC PO SCH (10:19)
[2023-03-09] MEDS: MAGNESIUM OXIDE 400 MG TABLET PO SCH ×4 (10:20→21:55)
[2023-03-09] MEDS: D5LR 1,000 ML IV SCH (12:15)
--- NOTE | 2023-03-09 13:41 | NUR ---
Nutrition F/U RD reviewed pts current EMR including diet hx, physician notes, nursing notes, pertinent labs/meds/procedures, care trends and care activity. 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 Per previous RD note (03/06/23), pt is pending hospice placement; Pt continues at risk for malnutrition and is not meeting nutritional needs. During this RD rounds, patient was stating she was scared of being moved, stated she didnt want to be sent away and would like to speak to RN. RD unable to interview patient as patient preoccupied about being sent away; she was unable to state whether she has been eating snacks provided; however, she did state she does not like Ensures because of the milky taste; can recommend ensure clear. Unable to find RN, called x2 and call was dropped. Pertinent labs: (03/09/23) K 2.7L, BUN 7L, Create 0.49L, Gluc 58L Current Diet Order/Nutrition Support: Soft (low-fiber/bland) x3 days % PO intake: Negligible <20%; many meals refused Last BM: x2 03/09/23; patient states reported she is incontinent, and has been having more solid BMs lately. Estimated Energy Expenditure (kcals/day) 8341-9622 kcal (25-30 kcal/kg ABW 64kg d/t GERIAT) Estimated Protein Required (g/day) 51-77g (0.8-1.2 g/kg ABW 64kg d/t GERIAT) Estimated Fluid Required (l/day) Refer to MD (fluid overload) Problem/Etiology/Signs/Symptoms * Suboptimal nutritional intakes R/T lack of appetite likely a/w confusion/disorientation AEB negligible PO intake records altered labs (03/09/23) K 2.7L, BUN 7L, Create 0.49L, Gluc 58L. (ongoing) Expected Outcomes/Goals PO intake provides >85% estimated nutrient needs, nutrition-related labs trending WNL, continued skin integrity, BM q1-3 days Dietitian Recommendations * Recommend Ensure Clear q lunch for patient to try * Continue Soft (low-fiber/bland) diet + Ensure BID + snacks * Continue appetite stimulant * Maximum encouragement at meal times Follow up * High Risk: RD to F/U within 2-3 days
--- NOTE | 2023-03-09 15:50 | NUR ---
Dr. Martin, [facility] PMD in,and notified that patient Potassium still low on yesterday; Potassium on 03-08-23 was 2.7, went up from 03-07-23 was 2.6. Potassium 40 meq. given, and patient refused one dose of Potassium. Asked him did he want to order Potassium IV and he stated no.
[2023-03-09] MEDS: MIRTAZAPINE 15 MG TABLET PO SCH (18:00)
[2023-03-10 00:25] VITALS: BP_SYST 119
[2023-03-10 05:57] VITALS: BP_SYST 102
[2023-03-10 08:00] VITALS: BP_SYST 138
[2023-03-10] MEDS: MEGESTROL ACETATE 400 MG/10 ML UDC PO SCH (11:35)
[2023-03-10] MEDS: MINERAL OIL 30 ML UDC PO SCH (11:36)
[2023-03-10] MEDS: POTASSIUM CHLORIDE 20 MEQ/PKT PACKET PO SCH ×4 (11:36→21:00)
[2023-03-10] MEDS: MAGNESIUM OXIDE 400 MG TABLET PO SCH ×3 (11:36→21:00)
[2023-03-10] MEDS: D5LR 1,000 ML IV SCH (12:15)
[2023-03-10 13:06] VITALS: BP_SYST 123
--- NOTE | 2023-03-10 16:16 | NUR ---
CM: faxed clinicals to [facility] for senior living /Hospice placement.
--- NOTE | 2023-03-10 16:56 | NUR ---
Received call from Idalia for [facility] who advised that they have confirmed placement for the patient with [facility]. The SNF has indicated they need a hospital bed, which Idalia advised she would arrange for delivery tomorrow morning. She inquired on what time would be a good time for transport to be arranged, and I informed her that a fish bait picker time of 10a would be good. LEANNE Zendejas was unavailable, however alee Mcgregor was advised of discharge plans for tomorrow, and indicated she would inform the nurse. [facility]: [phone] [facility]: [phone]
[2023-03-10 17:36] VITALS: BP_SYST 122
[2023-03-10] MEDS: MIRTAZAPINE 15 MG TABLET PO SCH (18:00)
[2023-03-10 19:13] LABS: ANION GAP 10 (5-15); CALCIUM 8.3 mg/dL (8.4-11.0); CHLORIDE 104 mmol/L (98-107); CREATININE 0.47 mg/dL (0.55-1.30); UREA NITROGEN, BLOOD 6 mg/dL (8-21)
[2023-03-10 19:36] LABS: GLUCOSE 48 mg/dL (70-99)
[2023-03-10 20:00] VITALS: BP_SYST 144
--- NOTE | 2023-03-10 20:00 | NUR ---
Patient received from AM shift nurse during change of shift. Patient is AA&Ox4 able to make needs known, extremely uncooperative and upset. Chest rise is even and unlabored on RA with Heart sounds WNL. No PIV is in place at this time due to patient refusal and MD is aware. Safety measures are in place as per protocol and patient has call light within reach. Will resume care
--- NOTE | 2023-03-10 20:15 | NUR ---
CRITICAL LAB: From Laboratory called with critical lab value K+ 2.2 & Glucose 48. Medical record number and patient name verified. Read back of values done. Dr. LOPEZ notified of value. New orders given at this time and verified for X2 40MEQ K-rider.
--- NOTE | 2023-03-10 21:00 | NUR ---
Patient does not have a PIV attempted to convince patient to allow insertion of a PIV to receive IV KCL as prescribed but patient continuously refuses. Made Umair charge nurse aware and patient still refused insertion of new line patient was not cooperative and education was provided on risk and benefits. Patient verbalized understanding but continues to refuse interventions.
--- NOTE | 2023-03-10 22:00 | NUR ---
Patient refused meds. Attempted to administer schedule medications but patient refused. Offered her PO KCL packet mixed with OJ and patient refused. Provided education to patient and understanding was verbalized. Patient extremely uncooperative.
[2023-03-10] MEDS: POTASSIUM CHLORIDE 40 MEQ in D5W 250 ML IV SCH (23:15)
[2023-03-11 00:30] VITALS: BP_SYST 125
--- NOTE | 2023-03-11 00:39 | NUR ---
Assessed patient vitals and offered her PO KCL but patient still refused. Informed her once again of the importance of a PIV insertion and patient still refuses. Patient is extremely uncooperative and shouting that she wants to be left alone. Patient is shooting for help because nurse continue to bother her. Will continue monitor.
--- NOTE | 2023-03-11 02:00 | NUR ---
ROUND: Patient is resting breathing even and unlabored. Will continue to monitor.
[2023-03-11] MEDS: POTASSIUM CHLORIDE 40 MEQ in D5W 250 ML IV SCH (03:15)
--- NOTE | 2023-03-11 04:18 | NUR ---
ROUND: Patient is sleeping breathing is even and unlabored.
[2023-03-11 08:41] VITALS: BP_SYST 145
[2023-03-11] MEDS: MINERAL OIL 30 ML UDC PO SCH (11:12)
[2023-03-11] MEDS: MEGESTROL ACETATE 400 MG/10 ML UDC PO SCH (11:13)
[2023-03-11] MEDS: MAGNESIUM OXIDE 400 MG TABLET PO SCH (11:13)
[2023-03-11] MEDS: POTASSIUM CHLORIDE 20 MEQ/PKT PACKET PO SCH (11:13)
--- NOTE | 2023-03-11 11:29 | NUR ---
Received call from Idalia Vidal, from [facility]. The discharge arrangements are in place for the patient to discharge today. The patient will go to room 226-A at [facility]. Transportation arrangements have been made for a p/u this evening at 5p by [facility] DME has been arranged by [facility]. The patient will have a hospital bed delivered to [facility]. LEANNE Hunt made aware of the discharge arrangements. A telephone call was also made to the sister, Lay Wahlnicholasjosh. I advised her of the discharge and hospice services at [facility]. Idalia Vidal, from [facility]: [phone] [facility]: [phone] [facility]: [phone] sister, Lay Meyer: [phone]
--- NOTE | 2023-03-11 11:43 | NUR ---
PHYSICAL THERAPY CO-SIGN The Physical Therapy Progress Notes documented by Toilet And Laundry Soap Supervisor have been reviewed. Reviewed/Co-Signed by: Mohsen Apodaca Documentation Done by:JACY FLORENCE Addendum: 03/11/23 at 1144 by Mohsen Apodaca PT Amended: Links added.
--- NOTE | 2023-03-11 11:45 | NUR ---
In person follow up visit made with Dr. Martin's office regarding the completion of the capacity statement needed for the continuation of the medical application. I spoke with the front business office technology instructor, Ekta, who advised she would have the sign when he comes in in the afternoon. Further follow will continue to be held with the office, as the form is needed to complete the process of the medical application. While the patient will transfer to [facility], the patient is still in need of medical in order to cover her retirement care needs. [facility] advised of the efforts being made to process the application for medical.
[2023-03-11 11:50] VITALS: BP_SYST 102
--- NOTE | 2023-03-11 15:13 | NUR ---
PHYSICAL THERAPY CO-SIGN The Physical Therapy Progress Notes documented by Polyethylene Bag Machine Operator have been reviewed. Reviewed/Co-Signed by: Mohsen Apodaca Documentation Done by:JACY FLORENCE Addendum: 03/11/23 at 1513 by Mohsen Apodaca PT Amended: Links added.
[2023-03-11 16:27] VITALS: BP_SYST 118
[2023-03-11 17:11] VITALS: BP_SYST 118
--- NOTE | 2023-03-11 17:45 | NUR ---
CALLED [facility] TO GIVE REPORT AND SPOKE TO THE CHARGE NURSE. CHARGE NURSE SAID THAT THEY CAN'T ACCEPT THE PATIENT BECAUSE PATIENT'S BED RAILING IS BROKEN AND THE COMPANY STAFF WHO DELIVERED THE BED THIS MORNING SAID THAT HE WILL COME BACK TOMORROW TO FIX IT AND THE PATIENT WILL BE ADMITTED TOMORROW TO THE FACILITY. BUT THE TRANSPORTED HAD LEFT THE HOSPITAL ALREADY. CHARGE NURSE MADE AWARE.
[2023-03-12] MEDS ORDERED: CHOLECALCIFEROL (VITAMIN D3) 2,000 UNIT TABLET PO SCH (09:00)
--- NOTE | 2023-03-12 15:41 | NUR ---
Follow up visit made back to Dr. Martin's office to check on the status of the completion of the declaration form for the pateint's medical. Per the front office staff, Ekta, the form has not been completed. The front office staff advised that he was with patients, they dont know how long he will be for him to complete the form, and that she was not going to interrupt his visit with a patient for me. I explained the urgency for the completion of the form and what it was needed for. While I was there, the hospice fellow also came by and was making an attempt to get the form completed as well. I advised [place] Arango from [facility] of my efforts, and advised him that continued follow up will come from the hospice fellow, Idalia Vidal. I provided her contact information to [place].
== END 2023-03-11 17:25 | disposition hospice, inpatient (51) | DRG 438 ==
LOC: SED 02:38 → OBSVTOIN 06:13 → STU 06:13 → SMU 02-23 13:38
PROVIDERS: ADMIT Internal Medicine; ATTEND Internal Medicine
DX: K85.90 Acute pancreatitis without necrosis or infection, unspecified (principal); E43 Unspecified severe protein-calorie malnutrition; N39.0 Urinary tract infection, site not specified; K56.7 Ileus, unspecified; R18.8 Other ascites; Z20.822 Contact with and (suspected) exposure to COVID-19; I10 Essential (primary) hypertension; E87.6 Hypokalemia; Z68.27 Body mass index [BMI] 27.0-27.9, adult; B96.1 Klebsiella pneumoniae [K. pneumoniae] as the cause of diseases classified elsewhere; D64.9 Anemia, unspecified; E16.2 Hypoglycemia, unspecified; F03.A0 Unspecified dementia, mild, without behavioral disturbance, psychotic disturbance, mood disturbance, and anxiety; Z60.2 Problems related to living alone; Z88.0 Allergy status to penicillin; Z91.040 Latex allergy status
CPT/HCPCS: 36415; 71045; 76376; 80048; 80053; 80061; 81000; 82140; 82306; 82533; 82607; 82746; 83525; 83605; 83690; 83735; 84100; 84443; 84484; 85025; 85610-TC; 85730-TC; 87040; 87086; 93005; 96365; 96375; 97110-GP; 97112-GP; 97530-GP; 99291; C9113; G0378; J2060; J2185; J2270; J2405; J2543; J3480; J7050; J7060; Q9963